=== PATIENT | female | born 1965 | race Caucasian/White ===

== ENCOUNTER → 2024-08-11 | Outpatient (CLI) | payer MEDICARE, MEDICAID, SELFPAY | END | disposition home or self-care (01) | PROVIDERS: PCP Physician Assistant Medical; Referring Provider Surgery Vascular Surgery; Visit Provider Surgery Vascular Surgery | DX: Z53.8 Procedure and treatment not carried out for other reasons (principal) ==

== ENCOUNTER → 2024-12-29 | Outpatient (CLI) | payer MEDICARE, MEDICAID, SELFPAY ==
--- NOTE | 2024-12-29 16:00 | XR_ITS ---
Examination: CT chest, without intravenous contrast. Sagittal and coronal 2-D reconstructions. Exam date and time: December 29, 2024 1639 hours Comparison 04/07/2018 INDICATIONS: Nicotine dependence, smoking history 40 years with coughing, diagnosis COPD CTDI:vol (mGy) 11.8 DLP: (mGycm) 449 Technique: Multiple 3.0 mm axial sections of the chest to been obtained. Bone and lung density settings are obtained. Sagittal and coronal 2-D reconstructions have been obtained. Low dose protocols were performed. One or more of the following dose reduction techniques were used; automated exposure control, adjustment of the mA and/or KV according to patient size, use of iterative reconstruction technique. Findings: Thoracic aortic calcification no aneurysmal dilatation Pulmonary artery segments are not enlarged Heavy calcification left anterior descending and left circumflex coronary arteries Mild enlargement cardiac contour Right internal jugular dialysis catheter is satisfactorily positioned as well as ventricular cardiac lead No paratracheal tracheobronchial or bronchopulmonary adenopathy 4 mm subpleural pulmonary nodule right upper lobe image 136 3 mm pulmonary nodule posterior right lung image 136 4 mm pleural-based pulmonary nodule right middle lobe image 212 No lobar pneumonia or pulmonary edema No visualized liver splenic lesion 2 mm right renal calculus IMPRESSION: Noncalcified pulmonary nodules as above, with this study as baseline recommend 6 month follow-up CT chest without contrast
== END | disposition home or self-care (01) ==
PROVIDERS: Referring Provider Physician Assistant Medical; Visit Provider Physician Assistant Medical
DX: R91.8 Other nonspecific abnormal finding of lung field (principal); F17.200 Nicotine dependence, unspecified, uncomplicated
CPT/HCPCS: 71271

== ENCOUNTER 2025-04-05 09:51 | Inpatient (IN) | payer MEDICARE, MEDICAID, SELFPAY ==
[2025-04-05] VITALS (13 sets, daily range): BP systolic 137–184; BP diastolic 85–99; PULSE 60–78; RESP 2–21; TEMP 36.1–36.8; O2SAT 88–99; BMI 27.6
--- NOTE | 2025-04-05 10:00 | XR_ITS ---
Examination: CT abdomen with intravenous contrast CT pelvis with intravenous contrast 2-D coronal reconstructions 2-D sagittal reconstructions Date and time of exam:April 05, 2025, 1122 hours, comparison May 02, 2018 INDICATIONS: Onset generalized abdominal pain today. CTDI: vol (mGy) 19.8 DLP: (mGycm) 1196 Technique: Multiple axial sections of the abdomen and pelvis have been obtained. 64 slice high-resolution scanner used. 3 mm axial sections have been obtained, post intravenous injection 75 cc [id number] 2-D sagittal, coronal reconstructions obtained. Low dose protocols were performed. One or more of the following dose reduction techniques were used; automated exposure control, adjustment of the mA and/or KV according to patient size, use of iterative reconstruction technique. Findings: 3 mm nodule anterior right lower lung zone Mild to moderate enlargement cardiac contour No focal liver lesion No gallstones No extrahepatic biliary tract dilatation Splenomegaly 13 cm No pancreatic mass Nodular thickening both adrenal glands Bilateral renal calculi 1 to 3 mm, no hydronephrosis or ureteral calculi Gastric mucosa appears thickened Abdominal aortic calcification no aneurysmal dilatation No bowel obstruction 22 mm fat-containing umbilical hernia Fat-containing right pelvic hernia defect 25 mm Normal appendix No bowel obstruction or diverticulitis Atrophic uterus Urinary bladder wall thickening up to 7 mm Prominent osteopenia Advanced degenerative disc disease L4-L5 Moderate bilateral hip osteoarthritis IMPRESSION: Bilateral nonobstructing renal calculi Gastritis pattern but clinical correlation advised, consider elective upper GI series follow-up 22 mm fat-containing a buckle hernia defect 25 mm fat-containing right pelvic anterior wall hernia defect Urinary bladder wall thickening up to 7 mm, consider cystitis
--- NOTE | 2025-04-05 10:03 | PD.EDABDPN ---
ED Abdominal Pain RME/HPI General Chief Complaint: Nausea/Vomiting/Diarrhea Stated complaint: N/V ABD PAIN Time seen by provider: 04/05/25 09:59 Arrival date/time: 04/05/25 09:51 Source: patient and EMS Mode of arrival: EMS Limitations: no limitations RME / HPI RME / HPI narrative: Patient is a 59-year-old female with medical history notable for ESRD goes Thursday with Dr. Nicole, hypertension, CHF on diuretics, neuropathy, takes gabapentin, anxiety takes Ativan that is seen Emergency Department concerns for headache, generally feeling well as well as lower abdominal pain. Per EMS and the patient, over the last couple days she has not felt well has had a headache. Denies fever however has been feeling warm at home. Has also been nauseous. This morning she woke up continued to have a headache, checked her blood pressure it was elevated so she took her blood pressure medication. She was not feeling any better, she measured her blood pressure again shortly thereafter it was still elevated so she took another dose of her blood pressure medication. She takes metoprolol for her blood pressure however she also takes furosemide for CHF. Patient also complaining of abdominal pain, started yesterday. Denies taking anything else. Patient still makes urine. Patient proceeded to go to her dialysis appointment today however when she arrived her systolic blood pressure was in the 80s. EMS was called. Per EMS when they arrived she was hypoxic to the 80s. Patient has oxygen at home however she is not oxygen dependent she only takes it as needed. She was also hypotensive to systolic blood pressure in the 80s. They were cautious and did not give her very much fluid given her history of CHF. Related Data Home Medications ?Medication ?Instructions ?Recorded ?Confirmed bumetanide 0.5 mg tablet 1 mg PO BID 01/20/22 04/06/25 acetaminophen 500 mg tablet 1,000 mg PO Q8HR PRN pain or 04/06/25 04/06/25 arthritis gabapentin 300 mg capsule 300 mg PO QDAY 04/06/25 04/06/25 guaifenesin 400 mg tablet 400 mg PO Q8HR PRN cough 04/06/25 04/06/25 lorazepam 2 mg tablet (Ativan) 2 mg PO BID 04/06/25 04/06/25 metoprolol tartrate 50 mg tablet 50 mg PO BID 04/06/25 04/06/25 sucroferric oxyhydroxide 500 mg 1,000 mg PO TID 04/06/25 04/06/25 chewable tablet (Velphoro) vitamin B complex-vitamin C-folic 1 tab PO QDAY 04/06/25 04/06/25 acid 0.8 mg tablet Previous Rx's ?Medication ?Instructions ?Recorded aspirin 81 mg tablet,delayed 81 mg PO QDAY #30 tabs 11/07/20 release (Adult Aspirin Regimen) insulin glargine 100 unit/mL (3 20 unit (0.2 mL) subcut QDAY 1 04/07/25 mL) subcutaneous pen (Lantus month #6 mL Solostar U-100 Insulin) insulin lispro 200 unit/mL (3 mL) 1 sliding scale dose subcut 04/07/25 subcutaneous pen USEASDIRECTD #6 mL Allergies Allergy/AdvReac Type Severity Reaction Status Date / Time titanium Allergy Verified 12/31/20 20:57 Review of Systems Review of Systems Systems Reviewed: All systems reviewed, normal except as documented Past Medical History Past Medical History NEUROLOGIC: Positive Cerebrovascular Accident CARDIAC: Positive Cardiac Disorders, Myocardial Infarction, Angina, Coronary Artery Disease, Congestive Heart Failure, Edema and Hypertension ENT: Positive Blind ENDOCRINE: Positive Endocrine Disorders, Diabetes Mellitus Type 1 and Diabetes Mellitus Type 2 HEMATOLOGIC: Positive Sickle Cell Disease PSYCHO/SOCIAL: Positive Depression OTHER HISTORY: Positive Blood Transfusions Family History FAMILY HISTORY: Negative Family Cardiac Disorders Surgical History SURGICAL: Positive Cardiac Surgery, Coronary Stent and Amputation Social History SMOKING STATUS: Unknown if ever smoked SUBSTANCE USE: methamphetamine ED Exam General Limitations: Present no limitations General appearance: Present alert and in no apparent distress Head Head exam: Present atraumatic and normocephalic Eye Eye exam: Present normal appearance, PERRL and EOMI ENT ENT exam: Present normal exam, normal oropharynx and mucous membranes dry Chest Chest inspection: Present normal inspection and symmetric chest wall rise Respiratory Respiratory exam: Present normal lung sounds bilaterally; Absent respiratory distress, wheezes or stridor Cardiovascular Cardiovascular exam: Present regular rate and normal rhythm Abdominal Exam Abdominal exam: Present soft and tenderness (Tenderness to evaluation of lower abdomen, no rebound or guarding); Absent distention Extremities Exam Extremities exam: Present other (Patient with above-knee amputation of left lower extremity, well-healed, no lesions appreciated in the right lower extremity nor bilateral upper extremities) Neurological Exam Neurological exam: Present alert, oriented X3 and other (Patient is GCS 15 however slow to respond) Psychiatric Psychiatric exam: Present normal affect and normal mood Skin Skin exam: Present warm, dry and intact Course Quality Measures Suspected type of Stroke: Non Acute Last known well (date): 04/05/25 Tenecteplase given: Reason(s) TPA not given: Stroke severity too mild (non-disabling) (suspected recrudescence, encephalopathy.) not given stroke Orders Category Date Time Status Bedside Blood Glucose NOW Care 04/05/25 11:08 Active Bedside COVID-19 Antigen Test NOW Care 04/05/25 10:[address] Screening NOW Care 04/05/25 10:00 Active Vice President Of Manufacturing NOW Care 04/05/25 11:08 Active Continuous Pulse Oximetry NOW Care 04/05/25 11:08 Completed EKG (ED ONLY) *Do not use* NOW Care 04/05/25 10:13 Completed EKG (ED ONLY) *Do not use* NOW Care 04/05/25 11:08 Completed In and Out Catheter NEEDED Care 04/05/25 11:08 Active Insert IV NOW Care 04/05/25 11:08 Completed NIH Stroke Scale now Care 04/05/25 11:08 Active NPO NOW Care 04/05/25 11:08 Active Neuro Check Q1HR Care 04/05/25 11:08 Active Nurse Swallow Screen x1 Care 04/05/25 11:08 Active Consult to Neurology / Tele-Neurology Routine Cons 04/05/25 11:[address] abdomen pelvis w con Stat Exams 04/05/25 10:[address] angio stroke protocol Stat Exams 04/05/25 11:[address] stroke protocol Stat Exams 04/05/25 11:08 Completed EKG (ED Only) Stat Exams 04/05/25 10:13 Draft EKG (ED Only) Stat Exams 04/05/25 11:08 Ordered XR chest 1V portable Stat Exams 04/05/25 11:08 Completed Alcohol, Blood Medical Stat Lab 04/05/25 10:58 Completed BNP [B-Type Natriuretic Peptide] Stat Lab 04/05/25 10:58 Completed CBC Stat Lab 04/05/25 10:26 Completed CMP [Comprehensive Metabolic Panel] Stat Lab 04/05/25 10:58 Completed Drug Screen,Urine Stat Lab 04/05/25 13:36 Ordered Influenza A & B Rapid Panel Stat Lab 04/05/25 10:26 Completed Magnesium Stat Lab 04/05/25 10:58 Completed Partial Thromboplastin Time Stat Lab 04/05/25 10:58 Completed Prothrombin Time with INR Stat Lab 04/05/25 10:58 Completed Troponin I Stat Lab 04/05/25 10:58 Completed UA, C/S IF [Urinalysis, C/S if Indicated] Stat Lab 04/05/25 10:58 Completed Urinalysis, C/S if Indicated Stat Lab 04/05/25 13:36 Ordered Urine Culture Stat Lab 04/05/25 10:58 Received VBG [Venous Blood Gas] Stat Lab 04/05/25 10:26 Completed Acetaminophen Tab [Tylenol Tab] Med 04/05/25 10:03 Discontinued 650 mg PO X1 ONE cefTRIAXone/D5w 1gm IV premix [Rocephin/D5w 1gm IV Med 04/05/25 12:03 Discontinued premix] 1 gm in 50 ml IV STAT Oxygen Delivery NOW RT 04/05/25 11:08 Completed Vital Signs Vital signs: Vital Signs Temperature 98.3 F 04/05/25 09:55 Pulse Rate 73 04/05/25 09:55 Respiratory Rate 18 04/05/25 09:55 Blood Pressure 173/93 H 04/05/25 09:55 Pulse Oximetry (%) 95 04/05/25 09:55 Oxygen Delivery Method Nasal Cannula 04/05/25 09:55 Oxygen Flow Rate 3 04/05/25 09:55 Pulse ox is 95% on 3L nasal cannula which is adequate. Abdominal Pain MDM MDM Narrative MDM Narrative:: Patient is a 59-year-old female is in Emergency Department concerns for headache abdominal pain hypoxia, and low blood pressure. Vital signs and exam as listed. Concern for ACS arrhythmia electrolyte abnormality fluid overload metabolic disturbance bowel obstruction, perforation, urinary tract infection among others. Ordered labs EKG chest x-ray CT head, CT abdomen pelvis with contrast. Patient is a dialysis patient. Did not go to dialysis today. 11:06h I was called into the room by RN. Report she was speaking with the patient when suddenly patient complained of I don't feel good followed by change in speech, left facial droop, and left sided weakness. Stroke alert called overhead. 11:35h: I spoke with hospice agency. 11:46h: Patient at this time reports I want to go home . I spoke with patients daughter Javier over the phone who reported the patient has had episodes of slurring her speech intermittently over the last several days. 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 Daughter denies patient taking any blood thinners or recent bleeding. 11:57h I spoke with teleneurologist Dr. Lilly. Reports patient had a left sided stroke with weakness and slurred speech in 2019. Likely recrudecense vs encephalopathy. Does not recommend TNK. Recommends admission for further work-up. 12:00h I spoke with hospitalist team C regarding admission. 12:20h I spoke with patients daughter Javier and discussed plan for admission. Patient data External records reviewed:: [facility] previous records and EMS form Clinical information provided by:: patient and EMS Social determinants that could affect healthcare access:: none Patient has the following chronic illnesses:: See MDM How is presenting disease/condition affected by chronic disease/condition?: exacerbated by Evaluation data The following diagnostics were reviewed and interpreted by me:: lab results, radiology exam(s) and EKG tracing(s) Lab and/or radiology exams considered but not ordered:: None Interpretation Summary: See MDM Medications / Prescriptions Medications or Prescriptions considered but not ordered:: None Medication administrations:: Medication Administration History Discontinued Medications Acetaminophen (Acetaminophen 325 Mg Tablet) 650 mg PO X1 ONE Stop: 04/05/25 10:04 Last Admin: 04/05/25 10:16 Dose: 650 mg Documented By: EF Acetaminophen (Acetaminophen 325 Mg Tablet) 650 mg PO Q6H PRN; Protocol PRN Reason: Fever >101.5 Stop: 05/05/25 12:53 Last Admin: 04/07/25 14:39 Dose: 650 mg Documented By: Admin: 04/07/25 06:29 Dose: 650 mg Documented By: [email or web address] Admin: 04/06/25 05:41 Dose: 650 mg Documented By: [email or web address] Albuterol (Albuterol Rt 2.5 Mg/0.5 Ml Nebu) 2.5 mg INH Q4H PRN PRN Reason: SHORTNESS OF BREATH OR WHEEZE Stop: 05/05/25 12:53 Albuterol/Ipratropium (Albuterol/Ipratropium (Duoneb) Rt Carmel 3 Ml Nebu) 3 ml INH Q6HRRT PRN PRN Reason: shortness of breath Stop: 05/05/25 18:59 Aspirin (Aspirin Ec 81 Mg Tabec) 81 mg PO QDAY YANA Stop: 05/05/25 13:14 Last Admin: 04/07/25 12:42 Dose: 81 mg Documented By: Admin: 04/06/25 10:07 Dose: 81 mg Documented By: Admin: 04/05/25 13:54 Dose: 81 mg Documented By: VG Atorvastatin Calcium (Atorvastatin Calcium 10 Mg Tablet) 40 mg PO HS YANA Stop: 05/05/25 20:59 Last Admin: 04/06/25 20:35 Dose: 40 mg Documented By: Admin: 04/05/25 20:55 Dose: 40 mg Documented By: RENE Bumetanide (Bumetanide Inj 0.25 Mg/Ml Vial 4 Ml) 1 mg IVP BID YANA Stop: 05/05/25 13:14 Last Admin: 04/07/25 12:43 Dose: 1 mg Documented By: Admin: 04/06/25 20:36 Dose: 1 mg Documented By: Admin: 04/06/25 10:07 Dose: 1 mg Documented By: Admin: 04/05/25 20:57 Dose: 1 mg Documented By: Admin: 04/05/25 13:54 Dose: 1 mg Documented By: DILMA Dextrose (Dextrose 50%-Water Inj 50 Ml Syringe) 25 ml IV Q15MIN PRN PRN Reason: BG 50-70 responsive npo pt Stop: 05/05/25 13:00 Last Admin: 04/06/25 05:22 Dose: 25 ml Documented By: Admin: 04/05/25 16:29 Dose: 25 ml Documented By: BR Dextrose (Dextrose 50%-Water Inj 50 Ml Syringe) 50 ml IV Q15MIN PRN PRN Reason: BG <50 OR BG <70 & pt unresponsive Stop: 05/05/25 13:00 Glucagon (Glucagon Inj 1 Mg Vial) 1 mg IM Q15MIN PRN PRN Reason: BG <70, and no IV access Last Admin: 04/06/25 05:39 Dose: 1 mg Documented By: RENE Heparin Sodium (Porcine) (Heparin Sod Inj 5000 Unit/Ml Vial) 5,000 unit SC Q12HR YANA Stop: 04/19/25 12:59 Last Admin: 04/07/25 12:42 Dose: 5,000 unit Documented By: RAMÓN Co-signed By: BELLO Admin: 04/06/25 20:37 Dose: 5,000 unit Documented By: RENE Co-signed By: Admin: 04/06/25 10:07 Dose: 5,000 unit Documented By: NIMA Co-signed By: BETZY Comments: rapid response patient Admin: 04/05/25 20:58 Dose: 5,000 unit Documented By: RENE Co-signed By: Admin: 04/05/25 13:59 Dose: 5,000 unit Documented By: DILMA Co-signed By: SHANNON Heparin Sodium (Porcine) (Heparin Sod Inj 1000 Unit/Ml Vial 10 Ml) 3,300 unit INDWELLCAT X1 PRN PRN Reason: DIALYSIS Last Admin: 04/07/25 11:33 Dose: 3,300 unit Documented By: SANGITA Co-signed By: JOSH Ceftriaxone Sodium/Dextrose (Rocephin/D5w 1gm Iv Premix) 1 gm in 50 mls @ 100 mls/hr IV STAT STA Stop: 04/05/25 12:32 Last Infusion: 04/05/25 15:32 Dose: Infused Documented By: Admin: 04/05/25 12:25 Dose: 100 mls/hr Documented By: DAYANA Ceftriaxone Sodium/Dextrose (Rocephin/D5w 1gm Iv Premix) 1 gm in 50 mls @ 100 mls/hr IV QDAY YANA Stop: 04/13/25 08:59 Last Admin: 04/07/25 12:43 Dose: 100 mls/hr Documented By: Infusion: 04/06/25 10:36 Dose: Infused Documented By: Admin: 04/06/25 10:06 Dose: 100 mls/hr Documented By: NIMA Azithromycin 500 mg/ Sodium (Chloride) 250 mls @ 250 mls/hr IV QDAY YANA Stop: 04/12/25 08:59 Last Admin: 04/07/25 12:42 Dose: 250 mls/hr Documented By: Infusion: 04/06/25 11:06 Dose: Infused Documented By: Admin: 04/06/25 10:06 Dose: 250 mls/hr Documented By: NIMA Comments: rapid response pt Azithromycin 500 mg/ Sodium (Chloride) 250 mls @ 250 mls/hr IV X1 ONE Stop: 04/05/25 14:14 Last Infusion: 04/05/25 15:31 Dose: Infused Documented By: Admin: 04/05/25 14:00 Dose: 250 mls/hr Documented By: DILMA Insulin Degludec (Insulin Degludec 5 Unit/0.05 Ml (Per 5 Units)) 20 unit SC HS YANA Stop: 05/05/25 20:59 Last Admin: 04/05/25 20:58 Dose: 20 unit Documented By: RENE Co-signed By: Insulin Degludec (Insulin Degludec 5 Unit/0.05 Ml (Per 5 Units)) 5 unit SC HS YANA Stop: 05/06/25 20:59 Insulin Degludec (Insulin Degludec 5 Unit/0.05 Ml (Per 5 Units)) 10 unit SC HS YANA Stop: 05/06/25 20:59 Insulin Degludec (Insulin Degludec 5 Unit/0.05 Ml (Per 5 Units)) 6 unit SC HS YANA Stop: 05/06/25 20:59 Last Admin: 04/06/25 20:38 Dose: Not Given Documented By: RENE Non-Admin Reason: Other, see note Comments: 2 BOWL TOPPER today due to blood sugar issues Insulin Degludec (Insulin Degludec 5 Unit/0.05 Ml (Per 5 Units)) 6 unit SC DAILY YANA Stop: 05/07/25 07:59 Last Admin: 04/07/25 13:12 Dose: Not Given Documented By: RAMÓN Non-Admin Reason: Cancelled by Provider Admin: 04/07/25 08:10 Dose: 6 unit Documented By: NIMA Co-signed By: SANGITA Insulin Human Lispro (Insulin Lispro (Admelog) 1 Unit/0.01 Ml Unit) 0 unit SC AC YANA; Protocol Stop: 05/05/25 16:59 Last Admin: 04/06/25 07:56 Dose: 3 unit Documented By: NIMA Co-signed By: TIFFANY Admin: 04/05/25 16:46 Dose: Not Given Documented By: JONATHAN Non-Admin Reason: Per Protocol Insulin Human Lispro (Insulin Lispro (Admelog) 1 Unit/0.01 Ml Unit) 0 unit SC Q4HR YANA; Protocol Stop: 05/06/25 10:29 Last Admin: 04/06/25 16:10 Dose: Not Given Documented By: NIMA Non-Admin Reason: Per Protocol Comments: q4 checks bs 42 Admin: 04/06/25 12:26 Dose: 2 unit Documented By: NIMA Co-signed By: DL Insulin Human Lispro (Insulin Lispro (Admelog) 1 Unit/0.01 Ml Unit) 0 unit SC AC YANA; Protocol Stop: 05/06/25 16:59 Insulin Human Lispro (Insulin Lispro (Admelog) 1 Unit/0.01 Ml Unit) 3 unit SC AC YANA Stop: 05/06/25 16:59 Insulin Human Lispro (Insulin Lispro (Admelog) 1 Unit/0.01 Ml Unit) 0 unit SC Q3HR YANA; Protocol Stop: 05/06/25 17:59 Insulin Human Lispro (Insulin Lispro (Admelog) 1 Unit/0.01 Ml Unit) 3 unit SC TIDWM YANA Stop: 05/06/25 17:29 Last Admin: 04/07/25 17:38 Dose: Not Given Documented By: NIMA Non-Admin Reason: Hold per Dr. Quach Comments: Pt has been vomiting Admin: 04/07/25 13:10 Dose: 3 unit Documented By: RAMÓN Co-signed By: NIMA Admin: 04/07/25 08:01 Dose: Not Given Documented By: NIMA Non-Admin Reason: Held per Dr. Buckner Admin: 04/06/25 17:55 Dose: Not Given Documented By: NIMA Non-Admin Reason: Blood sugar 79 Insulin Human Lispro (Insulin Lispro (Admelog) 1 Unit/0.01 Ml Unit) 0 unit SC AC [facility]; Protocol Stop: 05/06/25 16:59 Last Admin: 04/07/25 17:37 Dose: 1 unit Documented By: NIMA Co-signed By: BETZY Admin: 04/07/25 12:48 Dose: 1 unit Documented By: RAMÓN Co-signed By: BELLO Admin: 04/07/25 08:01 Dose: Not Given Documented By: NIMA Non-Admin Reason: Held per Dr. Buckner Admin: 04/06/25 17:06 Dose: Not Given Documented By: NIMA Non-Admin Reason: Per Protocol Insulin Human Regular (Insulin Hum Regular 1 Unit/0.01 Ml (Per Unit)) 10 unit IV X1 ONE; Protocol Stop: 04/06/25 09:52 Last Admin: 04/06/25 10:01 Dose: 10 unit Documented By: BETZY Co-signed By: NIMA Labetalol HCl (Labetalol Inj 5 Mg/Ml Vial 20 Ml) 10 mg IVP Q15MIN PRN PRN Reason: Hypertension Stop: 05/05/25 18:00 Last Admin: 04/07/25 18:09 Dose: 10 mg Documented By: Admin: 04/07/25 07:30 Dose: 10 mg Documented By: Admin: 04/06/25 23:56 Dose: 10 mg Documented By: Admin: 04/06/25 10:08 Dose: 10 mg Documented By: Admin: 04/06/25 05:40 Dose: 10 mg Documented By: RENE Metoprolol Tartrate (Metoprolol Tartrate 25 Mg Tablet) 25 mg PO BID YANA Stop: 05/06/25 20:59 Last Admin: 04/07/25 12:41 Dose: 25 mg Documented By: Admin: 04/06/25 20:39 Dose: 25 mg Documented By: RENE Nicotine (Nicotine Patch 14 Mg/24 Hr Patch.Td24) 14 mg TOP QDAY YANA Stop: 05/06/25 08:59 Last Admin: 04/07/25 12:44 Dose: 14 mg Documented By: Admin: 04/06/25 10:08 Dose: 14 mg Documented By: NIMA Ondansetron HCl (Ondansetron Inj 2 Mg/Ml Inj 2 Ml) 4 mg IVP Q6H PRN; Protocol PRN Reason: NAUSEA OR VOMITING Stop: 05/05/25 12:53 Last Admin: 04/07/25 16:57 Dose: 4 mg Documented By: NIMA Pantoprazole Sodium (Pantoprazole 40 Mg Tablet) 40 mg PO QDAY YANA Stop: 05/06/25 08:59 Last Admin: 04/07/25 12:42 Dose: 40 mg Documented By: Admin: 04/06/25 10:07 Dose: 40 mg Documented By: NIMA Polyethylene Glycol (Polyethylene Glycol 17 Gm Packet) 17 gm PO QDAY YANA Stop: 05/06/25 08:59 Last Admin: 04/07/25 12:45 Dose: Not Given Documented By: AC Non-Admin Reason: Patient Refused Admin: 04/06/25 10:17 Dose: Not Given Documented By: KD Non-Admin Reason: Patient Refused Sennosides (Senna/Docusate Sod 1 Tab Tablet) 1 tab PO QDAY PRN; Protocol PRN Reason: CONSTIPATION Stop: 05/06/25 05:08 Sodium Chloride (Sodium Chloride Rt [place] 0.9% 3 Ml Nebu) 3 ml INH PRN PRN PRN Reason: SOLN Stop: 05/05/25 12:53 Tuberculin PPD (Tuberculin Ppd Inj 5 Unit/0.1 Ml Dose) 5 unit ID X1 ONE Stop: 04/05/25 21:55 Last Admin: 04/06/25 19:16 Dose: Not Given Documented By: KD Non-Admin Reason: Dr. Madison said cancel See above Consultations Consultation(s) initiated? (list below): Yes Consultation #1 (Physician, Specialty, Details): I spoke with teleneurologist Dr. Lilly. Time: 11:57 Diagnosis Differential diagnosis abdominal pain: other (See MDM ) Most likely diagnosis given after review of the tests above:: Metabolic encephalopathy Altered mental status Admission Indicated Admission indicated?: indicated Admission Request Was there a request for admission?: Yes Admission Attestation Admission request attestation: Discussed case with Hospitalist service regarding admission. Discussed patients ED course, exam findings, labs, and radiology results. The Hospitalist [agrees] to accept the patient for admission. Disposition Plan Disposition Plan: Admit Critical Care Time Critical Care Time Critical Care Time: Yes Total Critical Care Time (min.): 60 Attestation: The high probability of sudden, clinically significant deterioration in the patient's condition required the highest level of my preparedness to intervene urgently. The services I provided to this patient were to treat and/or prevent clinically significant deterioration. Services included the following: chart data review, reviewing nursing notes and/or old charts, documentation time, leadership development consultant collaboration regarding findings and treatment options, medication orders and management, direct patient care, vital sign assessments and ordering, interpreting and reviewing diagnostic studies and lab tests. Aggregate critical care time includes only time during which I was engaged in work directly related to the patient's care, as described above, whether at bedside or elsewhere in the Emergency Department. It did not include time spent performing other reported procedures or the services of residents, students, nurses or physician assistants. Discharge Plan Plan Patient Disposition: Admit Acute Care w/in Hospital Patient condition on transfer: Stable Problem List Clinical Impression: Metabolic encephalopathy, Altered mental status Patient/Caregiver Discharge Instructions Discharge Activity: as per physical therapy Other Activity Instructions:: Please follow-up with your PCP, neurology in 1 to 2 weeks of discharge. Continue to monitor your blood glucose closely, discussed with your primary regarding blood glucose control Your insulin glargine dose has been changed to 20 units daily Consider getting referral to endocrinology from your PCP Discussed regarding your blood pressure control with your PCP.
--- NOTE | 2025-04-05 10:13 | EKG_ITS ---
[facility] Test Date: 2025-04-05 Pat Name: TRACY CARPENTER Department: Room: - Gender: Female Manager Of Tax: : 1965 Requested By: Kavya Wood Order Number: [id number] Reading MD: Kavya Wood Measurements Intervals [place] Rate: 70 P: -64 [place]: 122 QRS: 1 QRSD: 85 T: 171 QT: 389 QTc: 421 Interpretive Statements JUNCTIONAL RHYTHM LOW QRS VOLTAGE IN PRECORDIAL LEADS [QRS DEFLECTION < 1.0 mV IN CHEST LEADS] ANTEROSEPTAL MYOCARDIAL INFARCTION , OF INDETERMINATE AGE [40+ ms Q WAVE IN V1-V4] Compared to ECG 04/12/2024 22:01:22 Junctional rhythm now present Sinus rhythm no longer present Myocardial infarct finding still present /store/S0/[id number].pdf
[2025-04-05] MEDS: ACETAMINOPHEN 325 MG TABLET 650 MG PO (10:16)
[2025-04-05 10:36] LABS: Base Excess, Venous -3 (-3-3); O2 Saturation, Venous 96 % (96-97); PCO2, Venous 46 mmHg (36-56); PO2, Venous 80 mmHg (15-58); pH, Venous 7.32 (7.33-7.66)
[2025-04-05 10:46] LABS: Basophils # (Auto) 0.1 Thou/mm3 (0.0-0.2); Basophils % (Auto) 1 % (0-2.5); Eosinophils # (Auto) 0.2 Thou/mm3 (0.0-0.5); Eosinophils % (Auto) 3 % (0-10); Hematocrit 40.6 % (36.0-46.0); Hemoglobin 13.9 g/dL (12.0-16.0); Immature Granulocytes Auto 0.03 Thou/mm3 (0.00-0.00); Lymphocytes # (Auto) 1.4 Thou/mm3 (1.0-4.8); Lymphocytes % (Auto) 17 % (10-50); Mean Corpuscular HGB Conc 34.2 g/dl (31.0-37.0); Mean Corpuscular Hemoglobin 32.2 pg (25.0-35.0); Mean Corpuscular Volume 94 fL (80-100); Monocytes # (Auto) 0.6 Thou/mm3 (0.0-0.8); Monocytes % (Auto) 8 % (0-12); Neutrophils # (Auto) 5.9 Thou/mm3 (1.8-7.7); Neutrophils % (Auto) 72 % (37-80); Nucleated Red Blood Cell # 0.00 Thou/mm3 (0.00-0.00); Nucleated Red Blood Cell % 0 /100 WBC (0); Platelet Count 114 Thou/mm3 (140-440); RDW Standard Deviation 44.3 fL (36.4-46.3); Red Blood Count 4.32 Miln/mm3 (4.00-5.20); White Blood Count 8.2 Thou/mm3 (3.6-11.0)
[2025-04-05 11:04] LABS: Collection Type, Urine Catheter
--- NOTE | 2025-04-05 11:08 | XR_ITS ---
Examination: CTA carotids with intravenous contrast CTA brain, head with intravenous contrast. 2-D sagittal, coronal reconstructions. 3-D reconstructions. Exam date and time: April 05, 2025, 1128 hours INDICATIONS: Stroke alert this morning, onset focal neurologic deficit including left-sided body weakness altered mental status slurred speech CTDI: vol (mGy) 11.8 DLP: (mGycm) 157 Technique: Multiple CTA axial brain, head carotid images post intravenous contrast injection 60 cc, [id number]. 2-D sagittal, coronal reconstructions. 3-D reconstructions, 3-D post processing including vascular maximum intensity projection images. Low dose protocols were performed. One or more of the following dose reduction techniques were used; automated exposure control, adjustment of the mA and/or KV according to patient size, use of iterative reconstruction technique. Findings: Left thyromegaly with 19 mm left thyroid nodule Moderate carotid bifurcation calcification on the right, no significant stenoses common carotid artery carotid bifurcation or right internal carotid artery Moderate calcification left carotid bifurcation 20-40% stenosis left carotid bifurcation and origin left internal carotid artery Codominant vertebral arteries with no critical stenoses in the neck Intracranial vertebral arteries basilar artery posterior cerebral branches fill with no large vessel occlusions Significant calcification bilateral juxtasellar internal carotid arteries, bilateral 30-50% stenoses juxtasellar internal carotid arteries No large vessel occlusions involving M1 segments middle cerebral arteries middle cerebral artery trifurcation vessels or anterior cerebral arteries IMPRESSION: No critical neck arterial stenoses No cerebral large vessel arterial occlusions or thrombus
--- NOTE | 2025-04-05 11:08 | XR_ITS ---
Examination: CT brain head without contrast. 2-D sagittal coronal reconstructions Date and time of exam:April 05, 2025, 1116 hours INDICATIONS: Stroke alert, onset altered mental status left-sided body weakness beginning this morning. COMPARISON: January 19, 2022 CTDI: vol (mGy):50.8 DLP: (mGycm):1005 Technique: Multiple CT axial sections of the brain have been obtained, 5 mm slice thickness. Contrast has not been administered. 2-D sagittal, coronal reconstructions have been obtained Low dose protocols were performed. One or more of the following dose reduction techniques were used; automated exposure control, adjustment of the mA and/or KV according to patient size, use of iterative reconstruction technique. Findings: No significant ventricular enlargement. Unchanged areas of encephalomalacia in both occipital lobes Intra-axial or extra-axial hemorrhage density is not seen. No mass effect or midline shift Basal cisterns are not remarkable. Fourth ventricle is midline. Cranial vault intact. Impression: No interval acute hemorrhage, mass effect or midline shift
--- NOTE | 2025-04-05 11:08 | XR_ITS ---
Examination: AP chest single view Technique one AP portable upright chest single view Date and time: April 05, 2025 1215 hours, comparison January 19, 2022 INDICATIONS: Stroke alert today FINDINGS: Bibasilar opacity consider aspiration pneumonia Cardiac lead satisfactory position Mild prominence left ventricle Right internal jugular dialysis catheter tip SVC IMPRESSION: Mild bibasilar pneumonia, consider aspiration pneumonia
[2025-04-05 11:10] LABS: Bilirubin,Urine Negative (Negative); Blood,Urine 1+ (Negative); Clarity,Urine Clear (Clear/Hazy); Color,Urine Lt-Yellow (Lt Yel-Yel); Culture Indicated,Urine Yes; Glucose, Urine 2+ (Negative); Ketones,Urine Negative (Negative); Leukocyte Esterase,Urine Positive (Negative); Nitrite,Urine Negative (Negative); PH,Urine 6.0 (5.0-7.0); Protein,Urine 2+ (Neg - Trace); RBC,Urine 3 /hpf (0-3); Specific Gravity,Urine 1.010 (1.001-1.035); Squamous Epithelial Cell,Urine 2 /hpf (0-5); Urobilinogen,Urine Negative mg/dL (0.0-1.0); WBC,Urine 39 /hpf (0-5)
[2025-04-05 11:20] LABS: Influenza A Ag Negative; Influenza B Ag Negative
[2025-04-05 11:38] LABS: INR 1.0 (0.9-1.3); Partial Thromboplastin Time 27.0 Seconds (22.0-36.0); Prothrombin Time 10.9 Seconds (9.0-12.2)
[2025-04-05 11:44] LABS: Alanine Aminotransferase 16 U/L (10-49); Albumin, Serum 3.9 gm/dL (3.4-4.8); Albumin/Globulin Ratio 2.0 (1.2-2.2); Alcohol, Blood Medical < 3.0 mg/dL (0-10.0); Alkaline Phosphatase 76 U/L (46-116); Anion Gap 8 (7-16); Aspartate Amino Transferase 24 U/L (0-34); B-Type Natriuretic Peptide 1480 pg/mL (0-100); BUN/Creatinine Ratio 12 Ratio (12-20); Bilirubin,Total 0.3 mg/dL (0.3-1.2); Blood Urea Nitrogen 60 mg/dL (9-23); Calcium 9.7 mg/dL (8.3-10.6); Calcium (Corrected) 9.8 mg/dL (8.5-10.1); Carbon Dioxide 26.2 mMol/L (20.0-31.0); Chloride 104 mMol/L (98-107); Creatinine (Component) 5.0 mg/dL (0.6-1.3); Estimated Creatinine Clearance 11.6 mL/min (>60); Globulin 2.0 gm/dL (2.3-3.5); Glucose 158 mg/dL (74-106); Magnesium 2.2 mg/dL (1.6-2.6); Osmolality,Calculated 295 (275-295); Potassium 4.7 mMol/L (3.4-5.1); Sodium 138 mMol/L (136-145); Total Protein 5.9 gm/dL (5.7-8.2); eGFR 9 See Note
[2025-04-05 11:47] LABS: Troponin I 0.128 ng/mL (0.0-0.045)
--- NOTE | 2025-04-05 12:23 | ESCONSULT_ITS ---
Tele Neuro Consultation Consultation Date 04/05/25 Most Recent Vital Signs Last Vital Signs Temp 98.1 F 04/05/25 11:40 Pulse 72 04/05/25 11:46 Resp 16 04/05/25 11:40 BP 177/99 H 04/05/25 11:40 Pulse Ox 95 04/05/25 11:40 O2 Del Method Nasal Cannula 04/05/25 11:40 O2 Flow Rate 5 04/05/25 11:40 Laboratory-Coagulation Panel PT 10.9 Seconds (9.0-12.2) 04/05/25 10:58 INR 1.0 (0.9-1.3) 04/05/25 10:58 APTT 27.0 Seconds (22.0-36.0) 04/05/25 10:58 Consultation Narrative [facility] Patient Name:???TRACY CARPENTER Date of :???1965 Identification Number:??? Date of Service:???04/05/2025 11:09:56 Diagnosis:?I67.4 - Hypertensive encephalopathy ?G93.49 - Encephalopathy Multifactorial Impression: ?Recurrent episodes of altered mental status with re-emergence of prior stroke symptoms of left facial droop, dysarthria, and left hemiparesis (prior right parietal stroke in 2019), corresponding to a one-week history of headache, abdominal pain, and nausea, along with substantial blood pressure fluctuations. Clinical presentation is most consistent with recrudescence in the setting of illness and/or blood pressure fluctuations/hypertensive encephalopathy. IV thrombolysis was not recommended due to concern for non-stroke etiology such as PRES given the rapid BP fluctuations, particularly as PRES carries a high risk of hemorrhage in the setting of IV thrombolysis. ? ?Recommendations: ?- EEG ?- MRI brain ?- Goal BP <160/90 ?- Metabolic/infectious workup Our recommendations are outlined below. Recommendations: ? Stroke/Telemetry Floor ? Neuro Checks (Q4) ? Bedside Swallow Eval ? DVT Prophylaxis ? IV Fluids, Normal Saline ? Head of Bed 30 Degrees ? Euglycemia and Avoid Hyperthermia (PRN Acetaminophen) ? Initiate or continue Aspirin 81 MG daily Sign Out: ? Discussed with Emergency Department Provider Advanced Imaging: CTA Head and Neck Completed. LVO:No Patient is not a candidate for RICHARD Metrics: Last Known Well: 04/05/2025 11:00:00 Dispatch Time: 04/05/2025 11:09:56 Initial Response Time: 04/05/2025 11:12:32Symptoms: Not speaking, staring, left facial droop. Initial patient interaction: 04/05/2025 11:18:45 NIHSS Assessment Completed: 04/05/2025 11:26:32Patient is not a candidate for T hrombolytic. Thrombolytic Medical Decision: 04/05/2025 11:40:05Patient was not deemed candidate for Thrombolytic because of following reasons: other diagnosis suspected recrudescence, encephalopathy. CT Head: I personally reviewed all the CT images that were available to me and it showed: no acute pathology. Chronic bilateral occipital infarcts Primary Provider Notified of Diagnostic Impression and Management Plan on: 04/05/2025 11:55:04 History of Present Illness:Patient is a 59 year old Female. Patient is a 59-year-old woman who originally presented to the ED the morning for a 1-week history of headache, nausea, and abdominal pain. She reported that she checked her blood pressure this morning and it was elevated, so she took her BP meds. When it remained elevated an hour later, she took a second dose. She went to HD but was hypotensive and was hypoxic and was sent to the ED. BP here was initially 82/54 but responded to IVF. While in the ED she was assisted to the bathroom by the EXPORT AGENT at around 11am and went they tried to get her back to bed she started complaining of not feeling well, started to stare, stopped speaking, and developed left facial droop and left hemiparesis, prompting stroke alert. On review of prior records, it appears that she has prior history of right parietal stroke in 2019 which resulted in left facial droop/weakness which has since improved. Discussed with Dr. Bose, who reports that patient's daughter stated that the patient has been having recurrent episodes like this over the course of the past week, over the same timeframe as her headache, nausea, and abdominal pain. At the time of my evaluation, she continued to have headache and feel poorly but was communicating clearly. Past Medical History: ?Hypertension ?Diabetes Mellitus ?Hyperlipidemia ?Stroke ?Seizures ?There is no history of Atrial Fibrillation Other PMH:? ESRD - missed dialysis, cardiomyopathy with intracardiac thrombus, COPD, DVT, history of tobacco and methamphetamine use Medications: Anticoagulant use:??Unknown Antiplatelet use:?Yes?aspirin 81mg Reviewed EMR for current medications Other Medications Pertinent To Assessment Include: lorazepam, Bumex, insulin, Jardiance, metoprolol, gabapentin, guanfacine Allergies:? Reviewed Description:?titanium Social History: Smoking: Former Drug Use: Former Family History: There is no family history of premature cerebrovascular disease pertinent to this consultation ROS : 14 Points Review of Systems was performed and was negative except mentioned in HPI. Past Surgical History: There Is No Surgical History Contributory To Today?s Visit There Is Surgical History of:? left AKA Examination: BP(177/99),?Pulse(75),?Blood Glucose(140) 1A: Level of Consciousness - Alert; keenly responsive?+ 0 1B: Ask Month and Age - Both Questions Right?+ 0 1C: Blink Eyes & Squeeze Hands - Performs Both Tasks?+ 0 2: Test Horizontal Extraocular Movements - Normal?+ 0 3: Test Visual Olvera - No Visual Loss?+ 0 4: Test Facial Palsy (Use Grimace if Obtunded) - Minor paralysis (flat nasolabial fold, smile asymmetry)?+ 1 5A: Test Left Arm Motor Drift - Drift, but doesn't hit bed?+ 1 5B: Test Right Arm Motor Drift - Drift, but doesn't hit bed?+ 1 6A: Test Left Leg Motor Drift - Amputation/Joint Fusion?+ 0 6B: Test Right Leg Motor Drift - Drift, but doesn't hit bed?+ 1 7: Test Limb Ataxia (FNF/Heel-Mcgraw) - No Ataxia?+ 0 8: Test Sensation - Mild-Moderate Loss: Can Sense Being Touched?+ 1 9: Test Language/Aphasia - Normal; No aphasia?+ 0 10: Test Dysarthria - Mild-Moderate Dysarthria: Slurring but can be understood?+ 1 11: Test Extinction/Inattention - No abnormality?+ 0 NIHSS Score:?6 NIHSS Free Text :?left facial decreased sensation to touch and nasolabial fold flattening. Tongue midline, able to move side to side. ?Impaired attention, requires prompting to follow instructions/answer questions Pre-Morbid Modified Ab Scale: 4 Points = Moderately severe disability; unable to walk and attend to bodily needs without assistance Spoke with :?Dr. Bose This consult was conducted in real time using interactive audio and video technology. Patient was informed of the technology being used for this visit and agreed to proceed. Patient located in hospital and provider located at home/office setting. Patient is being evaluated for possible acute neurologic impairment and high probability of imminent or life-threatening deterioration. I spent total of 55 minutes providing care to this patient, including time for face to face visit via telemedicine, review of medical records, imaging studies and discussion of findings with providers, the patient and/or family. Dr Jessi Lilly [facility] For Inpatient follow-up with [facility] physician please call [facility] at . As we are not an outpatient service for any post hospital discharge needs please contact the hospital for assistance. If you have any questions for the [facility] physicians or need to reconsult for clinical or diagnostic changes please contact us via [facility] at . Signature :?Jessi Lilly
[2025-04-05] MEDS: cefTRIAXone/D5w 1gm IV premix 1 GM/50 ML BAG IV (12:25)
--- NOTE | 2025-04-05 12:37 | PC.SS ---
SS follow up note; Parul from [facility] contacted SS and informed SS that patient is an established patient and has been in hospice services since September. SS contacted patient's daughter Javier Rizzo to complete initial assessment. Patient Cyn Amaya is a 59 Year old female who presented to the ED for N/V ABD Pain. Patients daughter reported that patient lives at home with her. Patient's daughter informed SS that she no longer would like patient to discharge back on hospice services, she stated that she would like the services to be revoked. Patient need minimal assistance completing ADL's Patient's daughter is surrogate decision maker, [phone]. Patient is also a dialysis patient and goes to dialysis on Thu, Wed, Thu at [facility]. Patient also attends the [facility] on Thursday's and . Choice of pharmacy is [facility]. PCP is Adrienne Bronson at [facility]. Discharge plan has been discussed and patients daughter would like for patient to discharge back home, she is refusing SNF if recommended. Patient's daughter is patient's [facility] provider and gets 209 hours a month. Patient's daughter is requesting A Hospital bed and 02 if needed. Patient's daughter will provide transportation at time of discharge. Discharge plan: Home with HH VS SNF Next of kin: Javier Rizzo [phone] PCP Adrienne Bronson
--- NOTE | 2025-04-05 12:58 | ECHO_ITS ---
Transthoracic Echo Report Ht (in): 64 Wt (lb): 161 Exam Location: Echo Lab Status: Emergency Geography Department Chair: Veronica Andujar Indications: Procedure Performed: BP: 158 / 95 HR: MEASUREMENTS (Male / Female) Normal Values 2D ECHO LV Diastolic Diameter PLAX 4.4 cm 4.2 - 5.9 / 3.9 - 5.3 cm LV Systolic Diameter PLAX 3.9 cm IVS Diastolic Thickness 1.2 cm 0.6 - 1.0 / 0.6 - 0.9 cm LVPW Diastolic Thickness 1.3 cm 0.6 - 1.0 / 0.6 - 0.9 cm LV Relative Wall Thickness 0.6 LVOT Diameter 1.9 cm Aortic Root Diameter 2.7 cm LV Ejection Fraction MOD BP 27.4 % >= 55 % LV Ejection Fraction MOD 4C 36.5 % LV Ejection Fraction 4C AL 37.4 % LV Ejection Fraction MOD 2C 21.4 % LV Ejection Fraction 2C AL 21.0 % LA Volume Index 36.5 cm?/m? 16 - 28 cm?/m? DOPPLER AV Peak Velocity 143.0 cm/s AV Peak Gradient 8.2 mmHg AV Mean Gradient 4.0 mmHg AV Velocity Time Integral 27.0 cm LVOT Peak Velocity 79.1 cm/s LVOT Peak Gradient 2.5 mmHg LVOT Velocity Time Integral 15.1 cm AV Area Cont Eq vti 1.6 cm? AV Area Cont Eq pk 1.6 cm? MV Area PHT 4.8 cm? Mitral E Point Velocity 99.4 cm/s Mitral A Point Velocity 114.0 cm/s Mitral E to A Ratio 0.9 LV E' Lateral Velocity 4.6 cm/s Mitral E to LV E' Lateral Ratio 21.8 LV E' Septal Velocity 2.8 cm/s Mitral E to LV E' Septal Ratio 35.1 TR Peak Velocity 323.5 cm/s TR Peak Gradient 41.9 mmHg FINDINGS Left Ventricle Normal left ventricular size. Mild LVH. Normal left ventricular diastolic filling pattern for age. The ejection fraction is visually estimated at 45-50 %. There is grade II diastolic dysfunction of the left ventricle (pseudonormal filling pattern). Right Ventricle The right ventricular size is moderately increased with normal systolic function. The estimated right ventricular systolic pressure, 52 mmHg. RAP 8. Left Atrium Mildly increased left atrial volume 36.5 mL/m?. Right Atrium The right atrium is normal by two-dimensional imaging, color flow and Doppler imaging with no structural abnormalities, no thrombus formation present. Atrial Septum The interatrial septum appears normal with no evidence of a shunt. Aorta The aorta is normal by two-dimensional, color flow and Doppler interrogation. Mitral Valve The mitral valve is normal by two-dimensional, color flow and Doppler interrogation. Trace mitral regurgitation. Aortic Valve The aortic valve is trileaflet and normal by two-dimensional, color flow and Doppler interrogation. There is no significant aortic valve regurgitation. Tricuspid Valve The tricuspid valve is normal by two-dimensional, color flow and Doppler interrogation. There is moderate tricuspid regurgitation. Pulmonic Valve The pulmonic valve is not well visualized. There is no significant pulmonic valve regurgitation. Vessels The pulmonary artery appears normal. The inferior vena cava pulmonary and hepatic veins appear normal. Pericardium The pericardium is normal by two-dimensional imaging. There is no significant pericardial effusion. CONCLUSIONS Indication: CHF Volume overload Normal LV size. Mild LVH. Severely reduced LV systolic function. Estimated EF at 30-35-%. Diastolic dysfunction cannot be graded beacuse of the pacemaker wire. Moderately dilated RV and mild RV systolic function. Etimated RVSP around 60 mmHg. Moderate to severe PAH Trace to mild MR. There is moderate TR. Moderately increased LA volume. No pericardial effusion. Kameron Cheney (Electronically Signed) Final Date: 06 April 2025 00:24
--- NOTE | 2025-04-05 13:43 | PD.RESCONSUL ---
HPI Data of Consult Consult date: 04/05/25 Primary Care Provider: Adrienne Bronson MD Consult Narrative Reason for consult: Ruling out stroke History of present illness: This patient is a 59-year-old female with past medical history of ESRD on dialysis M/W/F follows Dr. Nicole, heart failure, hypertension, diabetes, hyperlipidemia, prior stroke with residual left-sided hemiparesis, left facial droop and mild dysarthria, seizures presented to the ED on 04/05/2025 with chief complaint of reemergence of prior stroke symptoms of left facial droop, dysarthria and left hemiparesis along with 1 week history of headache, abdominal pain and nausea along with fluctuating blood pressure. IV thrombolysis was not recommended due to concern for recrudescence in the setting of illness/hypertensive encephalopathy. IV thrombolysis was not given due to concern for increased risk of hemorrhage. NIHSS score 6. Patient stated that she did not complete her dialysis session today as her blood pressure was soft. EMS took her to the ED as her systolic blood pressure was in 80s. ED course: In the ED, patient received Tylenol 650 mg p.o. x 1 and aspirin was given. Patient started on Bumex, Rocephin, azithromycine. Labs revealed normal white count and hemoglobin. Chemistry panel consistent with ESRD pattern. Potassium 4.7. Blood glucose 158. Troponin I 0.128. BNP 1480. Urinalysis showed proteins, glucose and blood with mild WBCs. U tox was not performed. Chest x-ray showed bibasilar pneumonia. PMH: As above PSH:- SH: 44-vitu-sufd smoking history, denies drinking alcohol. Take marijuana Gummies. Allergies: Titanium Home medications: Bumex 1 mg twice daily, gabapentin 300 mg at bedtime, aspirin 81 mg, guaifenesin as needed, lorazepam as needed, metoprolol tartrate, Tylenol, citalopram Patient reported that she feels hungry and wants to eat and reported to have headache as well. She had impaired attention and requires prompting to follow instructions and answer questions. She is alert and oriented to time place and person. Will follow-up with MRI brain without contrast and EEG. Recommended to continue aspirin and statin.Will follow-up with MRI brain as patient's symptoms of asymmetrical forehead wrinkling and partial left eye lid closure are concerning for stroke cc:: cc: Review of Systems Review of Systems Systems Reviewed: All systems reviewed, normal except as documented Past Medical History Past Medical History NEUROLOGIC: Positive Cerebrovascular Accident CARDIAC: Positive Cardiac Disorders, Myocardial Infarction, Angina, Coronary Artery Disease, Congestive Heart Failure, Edema and Hypertension ENT: Positive Blind ENDOCRINE: Positive Endocrine Disorders, Diabetes Mellitus Type 1 and Diabetes Mellitus Type 2 HEMATOLOGIC: Positive Sickle Cell Disease PSYCHO/SOCIAL: Positive Depression OTHER HISTORY: Positive Blood Transfusions Family History FAMILY HISTORY: Negative Family Cardiac Disorders Surgical History SURGICAL: Positive Cardiac Surgery, Coronary Stent and Amputation Social History SMOKING STATUS: Unknown if ever smoked SUBSTANCE USE: methamphetamine Exam Vital Signs Temp Pulse Resp BP Pulse Ox O2 Del Method O2 Flow Rate 98.1 F 69 20 177/99 H 97 Nasal Cannula 1 04/05/25 11:40 04/05/25 13:15 04/05/25 13:15 04/05/25 11:40 04/05/25 13:15 04/05/25 11:40 04/05/25 13:15 Narrative Exam GENERAL APPEARANCE: AxOx4, elderly female in no acute distress. HEENT: NC, AT. MMM. EOMI, clear conjunctiva, oropharynx clear. Cataract in both eyes. Left eye lid partially closed. NECK: Supple without lymphadenopathy. No stiffness or restricted ROM.Right IJ catheter in place. HEART: Regular rate and regular rhythm, normal S1/S2, no m/r/g LUNGS: CTAB, moving air well. No crackles or wheezes are heard. ABDOMEN: Soft, nontender, nondistended with good bowel sounds heard. BACK: No CVAT, no obvious deformity. EXTREMITIES: Without cyanosis, clubbing or edema. Left BKA. NEUROLOGICAL: Grossly nonfocal. Alert and oriented, x 3. Left facial decreased sensation to touch and nasolabial fold flattening. Tongue midline able to move [id number]. Impaired attention. Requires prompting to follow instructions/answer questions. Left BKA. Power in left upper extremity 3/5, power in right upper extremity 4/5, power in right lower extremity 5/5. Skin: Warm and dry without any rash. Psych: Sometimes delayed responses however conversational Results Labs 04/05/25 10:26 04/05/25 16:37 Labs: Short CBC 04/05/25 Range/Units 10: WBC 8.2 (3.6-11.0) Thou/mm3 Hgb 13.9 (12.0-16.0) g/dL Hct 40.6 (36.0-46.0) % Plt Count 114 L (140-440) Thou/mm3 BMP 04/05/25 10:58 Sodium 138 Potassium 4.7 Chloride 104 Carbon Dioxide 26.2 BUN 60 H Creatinine 5.0 H* Glucose 158 H Calcium 9.7 Cardiac Enzymes 04/05/25 Range/Units 10:58 Troponin I 0.128 H* (0.0-0.045) ng/mL Liver Function 04/05/25 Range/Units 10:58 Total Bilirubin 0.3 (0.3-1.2) mg/dL AST 24 (0-34) U/L ALT 16 (10-49) U/L Alkaline Phosphatase 76 (46-116) U/L Albumin 3.9 (3.4-4.8) gm/dL Urine 04/05/25 Range/Units 10:58 Urine Color Lt-Yellow (Lt Yel-Yel) Urine Clarity Clear (Clear/Hazy) Urine pH 6.0 (5.0-7.0) Ur Specific [place] 1.010 (1.001-1.035) Urine Protein 2+ A (Neg - Trace) Urine Glucose (UA) 2+ A (Negative) ABG Interpretation ABG results: 04/05/25 10:26 VBG pH 7.32 L VBG pCO2 46 VBG pO2 80 H VBG Base Excess -3 Quality Measures Quality Measures stroke Suspected type of Stroke: Non Acute Last known well (date): 04/05/25 Last known well (time): 11:05 Tenecteplase given: Reason(s) Tenecteplase not given: Stroke severity too mild (non-disabling) (suspected recrudescence, encephalopathy.) not given Rehab services: PT evaluation ordered VTE Prophylaxis: pharmaceutical Antithrombotic by day 2:: not indicated (describe) Statin ordered: <75 y/o high intensity dose Anticoagulation ordered for A-fib or flutter (current or hx): not indicated Medications Home Medications and Allergies Home Medications ?Medication ?Instructions ?Recorded ?Confirmed ?Type amlodipine 10 mg tablet 1 tab PO QDAY 01/20/22 01/20/22 History aripiprazole 10 mg tablet 1 tab PO QDAY 01/20/22 01/20/22 History atorvastatin 80 mg tablet 1 tab PO HS 01/20/22 01/20/22 History bumetanide 0.5 mg tablet 2 tab PO BID 01/20/22 04/05/25 History citalopram 20 mg tablet 20 mg PO QDAY 01/20/22 01/20/22 History docusate sodium 250 mg capsule 1 cap PO BID PRN Constipation 01/20/22 01/20/22 History empagliflozin 25 mg tablet 1 tab PO QDAY 01/20/22 04/12/24 History (Jardiance) metoprolol tartrate 25 mg tablet 1 tab PO BID 01/20/22 04/05/25 History Allergies Allergy/AdvReac Type Severity Reaction Status Date / Time titanium Allergy Verified 12/31/20 20:57 Visit Medications Acetaminophen (Acetaminophen 325 Mg Tablet) 650 mg PO Q6H PRN; Protocol PRN Reason: Fever >101.5 Stop: 05/05/25 12:53 Albuterol (Albuterol Rt 2.5 Mg/0.5 Ml Nebu) 2.5 mg INH Q4H PRN PRN Reason: SHORTNESS OF BREATH OR WHEEZE Stop: 05/05/25 12:53 Aspirin (Aspirin Ec 81 Mg Tabec) 81 mg PO QDAY YANA Stop: 05/05/25 13:14 Atorvastatin Calcium (Atorvastatin Calcium 10 Mg Tablet) 40 mg PO HS YANA Stop: 05/05/25 20:59 Bumetanide (Bumetanide Inj 0.25 Mg/Ml Vial 4 Ml) 1 mg IVP BID YANA Stop: 05/05/25 13:14 Dextrose (Dextrose 50%-Water Inj 50 Ml Syringe) 25 ml IV Q15MIN PRN PRN Reason: BG 50-70 responsive npo pt Stop: 05/05/25 13:00 Dextrose (Dextrose 50%-Water Inj 50 Ml Syringe) 50 ml IV Q15MIN PRN PRN Reason: BG <50 OR BG <70 & pt unresponsive Stop: 05/05/25 13:00 Glucagon (Glucagon Inj 1 Mg Vial) 1 mg IM Q15MIN PRN PRN Reason: BG <70, and no IV access Heparin Sodium (Porcine) (Heparin Sod Inj 5000 Unit/Ml Vial) 5,000 unit SC Q12HR YANA Stop: 04/19/25 12:59 Ceftriaxone Sodium/Dextrose (Rocephin/D5w 1gm Iv Premix) 1 gm in 50 mls @ 100 mls/hr IV QDAY YANA Stop: 04/13/25 08:59 Azithromycin 500 mg/ Sodium (Chloride) 250 mls @ 250 mls/hr IV QDAY YANA Stop: 04/08/25 13:07 Azithromycin 500 mg/ Sodium (Chloride) 250 mls @ 250 mls/hr IV X1 ONE Stop: 04/05/25 14:14 Insulin Degludec (Insulin Degludec 5 Unit/0.05 Ml (Per 5 Units)) 20 unit SC HS YANA Stop: 05/05/25 20:59 Insulin Human Lispro (Insulin Lispro (Admelog) 1 Unit/0.01 Ml Unit) 0 unit SC AC YANA; Protocol Stop: 05/05/25 16:59 Ondansetron HCl (Ondansetron Inj 2 Mg/Ml Inj 2 Ml) 4 mg IVP Q6H PRN; Protocol PRN Reason: NAUSEA OR VOMITING Stop: 05/05/25 12:53 Pantoprazole Sodium (Pantoprazole 40 Mg Tablet) 40 mg PO QDAY YANA Stop: 05/06/25 08:59 Sodium Chloride (Sodium Chloride Rt [place] 0.9% 3 Ml Nebu) 3 ml INH PRN PRN PRN Reason: SOLN Stop: 05/05/25 12:53 Discontinued Medications Acetaminophen (Acetaminophen 325 Mg Tablet) 650 mg PO X1 ONE Stop: 04/05/25 10:04 Last Admin: 04/05/25 10:16 Dose: 650 mg Ceftriaxone Sodium/Dextrose (Rocephin/D5w 1gm Iv Premix) 1 gm in 50 mls @ 100 mls/hr IV STAT STA Stop: 04/05/25 12:32 Last Admin: 04/05/25 12:25 Dose: 100 mls/hr Assessment & Plan Plan Patient presented with reemergence of prior stroke symptoms of left facial droop, dysarthria and left hemiparesis along with 1 week history of headache, abdominal pain and nausea along with fluctuating blood pressure from dialysis unit. Admitted for possible stroke workup. #Stroke workup DDx: Recrudence versus press syndrome Patient presented with reemergence of prior stroke symptoms of left facial droop, dysarthria and left hemiparesis along with 1 week history of headache, abdominal pain and nausea along with fluctuating blood pressure. Last well-known time 11:00, initial response time 11:12 with no speaking, straining and left facial droop. NIHSS score 6. Patient was not deemed candidate for thrombolytic because of suspected recrudescence, encephalopathy. CT brain and head and neck CTA were negative for acute changes. Previous MRI from 2019 showed acute small infarcts in right parietal lobe. Plan: Will follow-up with MRI brain as patient's symptoms of asymmetrical forehead wrinkling and partial left eye lid closure are concerning for stroke Continue aspirin and statin Follow-up with EEG and MRI brain without contrast Echo with bubble study Physical therapy/speech therapy Neurochecks Q4 hourly Aspiration precautions Seizure precautions Follow-up with lab work #History of hypertension #History of seizures #Insulin-dependent type 2 diabetes #NSTEMI type II likely supply/demand ischemia #Hyperlipidemia #ESRD on dialysis M/W/F Rest of management as per primary care team. Plan of care discussed with neurologist, Dr Nacho Shipley MD, PGY 3 Attending Provider Attestation/Addendum I personally have seen and examined the patient virtually and I agreed with the resident's findings, assessment and plan of care. Patient presenting symptoms are suggestive of another ischemic event/TIA/hypertensive urgency CT brain and CT angio of the head were negative for acute changes. Will follow-up with MRI brain, EEG and Echo. continue with aspirin and statin.
[2025-04-05] MEDS: ASPIRIN EC 81 MG TABEC PO (13:54)
[2025-04-05] MEDS: BUMETANIDE INJ 0.25 MG/ML VIAL 4 ML 1 MG IVP ×2 (13:54→20:57)
[2025-04-05] MEDS: HEPARIN SOD INJ 5000 UNIT/ML VIAL SC ×2 (13:59→20:58)
[2025-04-05] MEDS: AZITHROMYCIN INJ 500 MG in SODIUM CHLORIDE 0.9% 250 ML 250 ML 250 MG IV (14:00)
--- NOTE | 2025-04-05 14:02 | ESHP_ITS ---
<Statement entered by Ishmael Buckner MD - 04/05/25 20:03> 59-year-old female with past medical history of ESRD ([facility], followed by Dr. 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 Flores in [place]), insulin-dependent type 2 diabetes mellitus who is admitted for stroke workup versus recrudescence versus PRES. CT head CTA head/neck unremarkable. Neurology following, MRI brain and EEG pending. Rapid response for hypoglycemia, please see event note for details. Degludec scheduled for 9 PM with bedside blood glucose check at midnight and will adjust accordingly. Patient has had recent fluctuations in blood pressure and per daughter has had blood sugars as high as 700s. Given labile blood pressures and blood sugars, suspect patient may not be taking her medications as directed. Will continue to evaluate while in house. ----- Note reviewed and agree with care plan as documented. Please refer to the note below for further details. Plan discussed with attending physician Dr. Main Buckner MD PGY-2 Internal Medicine Documentation for date of: 04/05/25 HPI History of Present Illness History of present illness: Cyn Amaya is a 59-year-old female with a history of ESRD ([facility], followed by Dr. 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 Flores in [place]), insulin-dependent type 2 diabetes mellitus who presented to the ED on 04/05/2025 with chief complaint of reemergence of prior stroke symptoms of left facial droop, dysarthria and left hemiparesis along with 1 week history of headache, abdominal pain and nausea and fluctuating blood pressure. Woke up with headache this morning, noticed BP was elevated at home x2 times, both times taking her BP medication (metoprolol). She then went to HD where they found her BP to be in the 80s SBP. EMS was contacted who found her hypoxic in the 80s. Per patient she has home O2 but only takes it as needed. She reports associated nausea and weakness, denies fever, chills, chest pain, abdominal pain, vomiting, diarrhea. In ED, teleneuro was consulted and suspects recrudescence versus PRES syndrome given BP fluctuations. Recommended MRI brain, EEG, and goal BP of <160/90. CT head and CTA head/neck negative for acute changes. Per in-house neurology, recommended to continue aspirin and statin, echo with bubble study. PCP: Dr. Adrienne Bronson Does not have preference of MDM between daughter Javier Rizzo ([phone]) and son Luis Rizzo ([phone]). PMHx: ESRD, HTN, T2DM, CHF, CVA w/ L sided deficits Medications: Amlodipine 10mg, Aripiprazole 10mg, Atorvastatin 80mg, Citalopram, Jardiance 25mg, Metoprolol Tartrate 25 BID, Bumex 1mg BID, Gabapentin 300mg FHx: None SHx: 50 pack years cigarettes, no EtOH. Lives w/ daughter in their home. PSHx: Stents placed post-IN Allergies: NKDA Review of Systems Review of Systems Systems Reviewed: All systems reviewed, normal except as documented Exam Vital Signs Temp Pulse Resp BP Pulse Ox O2 Del Method O2 Flow Rate 98.1 F 63 20 173/90 H 97 Nasal Cannula 1 04/05/25 11:40 04/05/25 13:54 04/05/25 13:15 04/05/25 13:54 04/05/25 13:15 04/05/25 11:40 04/05/25 13:15 Narrative Exam General: AOx3, appears mildly distressed/agitated, able to speak full sentences HEENT: NC/AT, mucous membranes moist, bilateral sclera anicteric, prominent b/l cataracts w/ R eyelid droop pt claims is baseline Cardiovascular: regular rate and rhythm, S1/S2 present, no murmurs appreciated Pulmonary: clear to auscultation bilaterally, no rales/rhonchi/wheezes Abdominal: soft, non-tender, non-distended, no rebound/guarding, normal bowel sounds present Musculoskeletal: normal ROM, L BKA Skin: warm and dry, intact, no rashes Neuro: CN II-XII intact, sensation intact b/l extremities,left facial decreased sensation to touch and nasolabial fold flattening. Tongue midline able to move [id number]. Impaired attention. Requires prompting to follow instructions/answer questions. Left BKA. Power in left upper extremity 3/5, power in right upper extremity 4/5, power in right lower extremity 5/5. Results: Labs 04/05/25 10:26 04/05/25 16:37 Labs: Short CBC 04/05/25 Range/Units 10:26 WBC 8.2 (3.6-11.0) Thou/mm3 Hgb 13.9 (12.0-16.0) g/dL Hct 40.6 (36.0-46.0) % Plt Count 114 L (140-440) Thou/mm3 BMP 04/05/25 10:58 Sodium 138 Potassium 4.7 Chloride 104 Carbon Dioxide 26.2 BUN 60 H Creatinine 5.0 H* Glucose 158 H Calcium 9.7 Cardiac Enzymes 04/05/25 Range/Units 10:58 Troponin I 0.128 H* (0.0-0.045) ng/mL Liver Function 04/05/25 Range/Units 10:58 Total Bilirubin 0.3 (0.3-1.2) mg/dL AST 24 (0-34) U/L ALT 16 (10-49) U/L Alkaline Phosphatase 76 (46-116) U/L Albumin 3.9 (3.4-4.8) gm/dL Urine 04/05/25 Range/Units 10:58 Urine Color Lt-Yellow (Lt Yel-Yel) Urine Clarity Clear (Clear/Hazy) Urine pH 6.0 (5.0-7.0) Ur Specific [place] 1.010 (1.001-1.035) Urine Protein 2+ A (Neg - Trace) Urine Glucose (UA) 2+ A (Negative) ABG Interpretation ABG results: 04/05/25 10:26 VBG pH 7.32 L VBG pCO2 46 VBG pO2 80 H VBG Base Excess -3 Quality Measures Quality Measures stroke Suspected type of Stroke: Non Acute Last known well (date): 04/05/25 Last known well (time): 11:05 Tenecteplase given: Reason(s) Tenecteplase not given: Stroke severity too mild (non-disabling) (suspected recrudescence, encephalopathy.) not given Rehab services: PT evaluation ordered and Speech Language Pathology eval ordered VTE Prophylaxis: pharmaceutical Antithrombotic by day 2:: not indicated (describe) Statin ordered: <75 y/o high intensity dose Anticoagulation ordered for A-fib or flutter (current or hx): not indicated Medications Home Medications and Allergies Home Medications ?Medication ?Instructions ?Recorded ?Confirmed ?Type amlodipine 10 mg tablet 1 tab PO QDAY 01/20/2201/20 History aripiprazole 10 mg tablet 1 tab PO QDAY 01/20/2201/20 History atorvastatin 80 mg tablet 1 tab PO HS 01/20/22 2 History bumetanide 0.5 mg tablet 2 tab PO BID 01/20/22 History citalopram 20 mg tablet 20 mg PO QDAY 01/20/2201/20 History docusate sodium 250 mg capsule 1 cap PO BID PRN Consti pation 01/20/22 01/20/22 History empagliflozin 25 mg tablet 1 tab PO QDAY 01/20/2208/05 History (Jardiance) metoprolol tartrate 25 mg tablet 1 tab PO BID 01/20/22 04/05/25 History Allergies Allergy/AdvReac Type Severity Reaction Status Date / Time titanium Allergy Verified 12/31/20 20:57 Visit Medications Acetaminophen (Acetaminophen 325 Mg Tablet) 650 mg PO Q6H PRN; Protocol PRN Reason: Fever >101.5 Stop: 05/05/25 12:53 Albuterol (Albuterol Rt 2.5 Mg/0.5 Ml Nebu) 2.5 mg INH Q4H PRN PRN Reason: SHORTNESS OF BREATH OR WHEEZE Stop: 05/05/25 12:53 Aspirin (Aspirin Ec 81 Mg Tabec) 81 mg PO QDAY YANA Stop: 05/05/25 13:14 Last Admin: 04/05/25 13:54 Dose: 81 mg Atorvastatin Calcium (Atorvastatin Calcium 10 Mg Tablet) 40 mg PO HS YANA Stop: 05/05/25 20:59 Bumetanide (Bumetanide Inj 0.25 Mg/Ml Vial 4 Ml) 1 mg IVP BID YANA Stop: 05/05/25 13:14 Last Admin: 04/05/25 13:54 Dose: 1 mg Dextrose (Dextrose 50%-Water Inj 50 Ml Syringe) 25 ml IV Q15MIN PRN PRN Reason: BG 50-70 responsive npo pt Stop: 05/05/25 13:00 Dextrose (Dextrose 50%-Water Inj 50 Ml Syringe) 50 ml IV Q15MIN PRN PRN Reason: BG <50 OR BG <70 & pt unresponsive Stop: 05/05/25 13:00 Glucagon (Glucagon Inj 1 Mg Vial) 1 mg IM Q15MIN PRN PRN Reason: BG <70, and no IV access Heparin Sodium (Porcine) (Heparin Sod Inj 5000 Unit/Ml Vial) 5,000 unit SC Q12HR YANA Stop: 04/19/25 12:59 Last Admin: 04/05/25 13:59 Dose: 5,000 unit Ceftriaxone Sodium/Dextrose (Rocephin/D5w 1gm Iv Premix) 1 gm in 50 mls @ 100 mls/hr IV QDAY YANA Stop: 04/13/25 08:59 Azithromycin 500 mg/ Sodium (Chloride) 250 mls @ 250 mls/hr IV QDAY YANA Stop: 04/08/25 13:07 Azithromycin 500 mg/ Sodium (Chloride) 250 mls @ 250 mls/hr IV X1 ONE Stop: 04/05/25 14:14 Last Admin: 04/05/25 14:00 Dose: 250 mls/hr Insulin Degludec (Insulin Degludec 5 Unit/0.05 Ml (Per 5 Units)) 20 unit SC HS [facility] Stop: 05/05/25 20:59 Insulin Human Lispro (Insulin Lispro (Admelog) 1 Unit/0.01 Ml Unit) 0 unit SC AC YANA; Protocol Stop: 05/05/25 16:59 Ondansetron HCl (Ondansetron Inj 2 Mg/Ml Inj 2 Ml) 4 mg IVP Q6H PRN; Protocol PRN Reason: NAUSEA OR VOMITING Stop: 05/05/25 12:53 Pantoprazole Sodium (Pantoprazole 40 Mg Tablet) 40 mg PO QDAY YANA Stop: 05/06/25 08:59 Sodium Chloride (Sodium Chloride Rt [place] 0.9% 3 Ml Nebu) 3 ml INH PRN PRN PRN Reason: SOLN Stop: 05/05/25 12:53 Discontinued Medications Acetaminophen (Acetaminophen 325 Mg Tablet) 650 mg PO X1 ONE Stop: 04/05/25 10:04 Last Admin: 04/05/25 10:16 Dose: 650 mg Ceftriaxone Sodium/Dextrose (Rocephin/D5w 1gm Iv Premix) 1 gm in 50 mls @ 100 mls/hr IV STAT STA Stop: 04/05/25 12:32 Last Admin: 04/05/25 12:25 Dose: 100 mls/hr Assessment & Plan Plan Cyn Amaya is a 59-year-old female with a history of ESRD ([facility], followed by Dr. 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 Flores in [place]), insulin-dependent type 2 diabetes mellitus who was admitted for stroke work-up. #Encephalopathy possibly in setting of stroke #Recrudescence vs PRES Per neurology consult, ddx return/exacerbation of deficits d/t previous stroke vs PRES syndrome Patient presented with reemergence of prior stroke symptoms of left facial droop, dysarthria and left hemiparesis along with 1 week history of headache, abdominal pain and nausea along with fluctuating blood pressure. Last well-known time 11:00, initial response time 11:12 with no speaking, straining and left facial droop. NIHSS score 6. Patient was not deemed candidate for thrombolytic because of suspected recrudescence, encephalopathy. CT brain and head and neck CTA were negative for acute changes, however pt's asymmetrical forehead wrinkling and partial left eye lid closure concerning for focal deficit/stroke. Previous MRI from 2019 showed acute small infarcts in right parietal lobe. Passed nurse bedside swallow 04/05/25. - Neuro consulted, appreciated. Per recs will FU w/ MRI Brain + EEG - Cont home ASA and Statin - Echo w/ bubble study - PT/Speech Therapy - Neurochecks Q4 - Aspiration and Seizure precautions - Trend CBC/CMP in AM #HFrEF (s/p ICD, EF 30% in 2021) Follows Dr. Flores in [place]. - Bumex 1 g IV daily - Follow-up echo #History of hypertension Chronic, controlled. Pt became hypotensive after taking 2x daily Metoprolol Tartrate 25mg, however following admission is hypertensive in 150s-170s SBP. - Cont home Metoprolol as above - Labetalol 10 mg IV prn #[id number] smoking history, current smoker #? COPD - As needed DuoNeb - Nicotine patch #History of seizures Pt does not have recent hx of seizure, unlikely that current hospital stay is related to epileptic etiology. Pt is not medicated for seizures. - Monitor - Neurology following #Insulin-dependent type 2 diabetes Chronic, latest A1c 7.12 April 2024. Per pt takes 40 units L[place] at home in the morning. - Will order latest A1c - Degludec 20 units HS - SSI - Accuchecks - Bedside blood sugar at midnight in light of RR for hypoglycemia (see event note for details) #Hyperlipidemia - Will order latest lipid panel d/t suspicion stroke - Cont home Atorvastatin #ESRD on dialysis M/W/F - Nephro consulted - CMP in AM - Dialyze as scheduled Hospital management: Disposition: Pending further Neuro workup (MRI and EEG) Diet: Renal DVT prophylaxis: Heparin SC BID GI prophylaxis: Protonix 40mg PO qD CODE STATUS: full code ----- Plan discussed with attending physician Dr. Main Mendoza, Medical Student [facility] Attending Provider Attestation/Addendum I attest that I was physically present for the evaluation, physical examination, lab and imaging review of the patient with the residents. I discussed the case with the residents and agree with the findings and plans of care as documented above. After examination of the patient and review of the clinical data I feel that this patient needs admission to the hospital for further treatment/evaluation Whitney Quach MD
[2025-04-05] MEDS: DEXTROSE 50%-WATER INJ 50 ML SYRINGE 25 ML IV (16:29)
[2025-04-05 17:24] LABS: Amphetamine/Methamp Scrn,U Negative (Negative); Barbiturate Screen,Urine Negative (Negative); Benzodiazepines Screen,Urine Negative (Negative); Benzoylecgonine Screen, Ur Negative (Negative); Fentanyl Screen,Urine Negative (Negative); Opiate Screen,Urine Negative (Negative); THC Screen,Urine Negative (Negative)
[2025-04-05 17:25] LABS: Albumin, Serum 3.7 gm/dL (3.4-4.8); Anion Gap 9 (7-16); BUN/Creatinine Ratio 12 Ratio (12-20); Blood Urea Nitrogen 59 mg/dL (9-23); Calcium 9.0 mg/dL (8.3-10.6); Calcium (Corrected) 9.2 mg/dL (8.5-10.1); Carbon Dioxide 27.1 mMol/L (20.0-31.0); Chloride 103 mMol/L (98-107); Creatinine (Component) 5.0 mg/dL (0.6-1.3); Estimated Creatinine Clearance 12.0 mL/min (>60); Glucose 116 mg/dL (74-106); Osmolality,Calculated 295 (275-295); Phosphorous 4.7 mg/dL (2.4-5.1); Potassium 4.3 mMol/L (3.4-5.1); Sodium 139 mMol/L (136-145); eGFR 9 See Note
[2025-04-05 17:26] LABS: Troponin I 0.124 ng/mL (0.0-0.045)
--- NOTE | 2025-04-05 19:20 | PD.RESEVENT ---
Documentation for date of: 04/05/25 Event Note Event Note: RR called at approximately 4:30 PM for blood sugar in high 30s. Patient was alert and oriented upon arrival and was given IV dextrose, crackers, and pudding and subsequent blood sugar 30 minutes later showed blood sugar of 94. Insulin degludec to be given at 9 PM but with subsequent blood sugar check at midnight. Will adjust insulin/IV dextrose needs based on value. ----- Note reviewed and agree with care plan as documented. Please refer to the note below for further details. Plan discussed with attending physician Dr. Main Buckner MD PGY-2 Internal Medicine
--- NOTE | 2025-04-05 20:34 | RESP.EEG ---
PT REFUSED. GRETTA MELARA.
[2025-04-05] MEDS: ATORVASTATIN CALCIUM 10 MG TABLET 40 MG PO (20:55)
[2025-04-05] MEDS: INSULIN DEGLUDEC 5 UNIT/0.05 ML (PER 5 UNITS) 20 UNIT SC (20:58)
[2025-04-05 23:03] LABS: Hepatitis A Antibody IgM Non Reactive (Non React); Hepatitis B Core Antibody IgM Non Reactive (Non React); Hepatitis B Surface Antigen Non Reactive (Non React); Hepatitis C Antibody Non Reactive (Non React)
[2025-04-06] VITALS (17 sets, daily range): BP systolic 135–190; BP diastolic 78–97; PULSE 60–90; RESP 12–22; TEMP 35.9–36.4; O2SAT 92–99
[2025-04-06] MEDS: DEXTROSE 50%-WATER INJ 50 ML SYRINGE 25 ML IV (05:22)
[2025-04-06 05:27] LABS: Basophils # (Auto) 0.1 Thou/mm3 (0.0-0.2); Basophils % (Auto) 1 % (0-2.5); Eosinophils # (Auto) 0.4 Thou/mm3 (0.0-0.5); Eosinophils % (Auto) 4 % (0-10); Hematocrit 42.6 % (36.0-46.0); Hemoglobin 14.3 g/dL (12.0-16.0); Immature Granulocytes Auto 0.04 Thou/mm3 (0.00-0.00); Lymphocytes # (Auto) 3.9 Thou/mm3 (1.0-4.8); Lymphocytes % (Auto) 39 % (10-50); Mean Corpuscular HGB Conc 33.6 g/dl (31.0-37.0); Mean Corpuscular Hemoglobin 31.8 pg (25.0-35.0); Mean Corpuscular Volume 95 fL (80-100); Monocytes # (Auto) 0.8 Thou/mm3 (0.0-0.8); Monocytes % (Auto) 8 % (0-12); Neutrophils # (Auto) 4.7 Thou/mm3 (1.8-7.7); Neutrophils % (Auto) 47 % (37-80); Nucleated Red Blood Cell # 0.00 Thou/mm3 (0.00-0.00); Nucleated Red Blood Cell % 0 /100 WBC (0); Platelet Count 172 Thou/mm3 (140-440); RDW Standard Deviation 44.3 fL (36.4-46.3); Red Blood Count 4.49 Miln/mm3 (4.00-5.20); White Blood Count 10.1 Thou/mm3 (3.6-11.0)
[2025-04-06] MEDS: GLUCAGON INJ 1 MG VIAL IM (05:39)
[2025-04-06] MEDS: LABETALOL INJ 5 MG/ML VIAL 20 ML 10 MG IVP ×3 (05:40→23:56)
[2025-04-06] MEDS: ACETAMINOPHEN 325 MG TABLET 650 MG PO (05:41)
[2025-04-06 05:44] LABS: Glucose Estimated Average 203 mg/dL (80-131); Hemoglobin A1C 8.7 % Hgb (4.8-6.0)
[2025-04-06 05:51] LABS: Vitamin D 25 Hydroxy Total 36.4 ng/mL (7.3-40.2)
[2025-04-06 05:52] LABS: Parathyroid Hormone Intact 151.5 pg/ml (18.5-88.0)
--- NOTE | 2025-04-06 05:52 | PC.NURSE ---
Went in to assess pt and blood glucose was 24, gave D50, juice, and glucagon. Blood glucose went up to 138. MD Denis made aware. No new orders.
[2025-04-06 06:14] LABS: Alanine Aminotransferase 16 U/L (10-49); Albumin, Serum 3.8 gm/dL (3.4-4.8); Albumin/Globulin Ratio 1.8 (1.2-2.2); Alkaline Phosphatase 70 U/L (46-116); Anion Gap 13 (7-16); Aspartate Amino Transferase 27 U/L (0-34); BUN/Creatinine Ratio 10 Ratio (12-20); Bilirubin,Total 0.2 mg/dL (0.3-1.2); Blood Urea Nitrogen 53 mg/dL (9-23); Calcium 9.0 mg/dL (8.3-10.6); Calcium (Corrected) 9.2 mg/dL (8.5-10.1); Carbon Dioxide 24.7 mMol/L (20.0-31.0); Cardiac Risk Estimate 2.7 RATIO (3.7-5.6); Chloride 103 mMol/L (98-107); Cholesterol 181 mg/dL (132-200); Creatinine (Component) 5.1 mg/dL (0.6-1.3); Estimated Creatinine Clearance 11.8 mL/min (>60); Globulin 2.1 gm/dL (2.3-3.5); HDL Cholesterol 68 mg/dL (40-60); LDL Cholesterol,Calculated 89 mg/dL (0-130); Magnesium 2.2 mg/dL (1.6-2.6); Osmolality,Calculated 291 (275-295); Phosphorous 5.5 mg/dL (2.4-5.1); Potassium 3.7 mMol/L (3.4-5.1); Sodium 141 mMol/L (136-145); Thyroid Stimulating Hormone 1.72 uIU/mL (0.55-4.78); Total Protein 5.9 gm/dL (5.7-8.2); Triglycerides 119 mg/dL (30-150); Uric Acid 8.2 mg/dL (3.1-7.8); eGFR 9 See Note
[2025-04-06 06:31] LABS: Glucose 27 mg/dL (74-106)
--- NOTE | 2025-04-06 07:35 | PC.NURSE ---
Went in to check patient blood sugar. Pt said she has been calling the desk since 4 am saying that her bed is wet. Checked pt's bed. Bed was dry. Changed pad for pt's comfort and used molly gonzalez to take pt to bathroom.
[2025-04-06] MEDS: INSULIN LISPRO (AdmeLOG) 1 UNIT/0.01 ML UNIT SC ×2 (07:56→12:26)
--- NOTE | 2025-04-06 09:46 | PC.NURSE ---
Went in to give Patient 0900 oclock meds. Patient was feeling hot and cold. Slurred Speech, lethargic. Patient stated she did not feel good and that she felt like her blood sugar may be high. Checked Blood Sugar. 345. Called [facility].
[2025-04-06] MEDS: INSULIN HUM REGULAR 1 UNIT/0.01 ML (PER UNIT) 10 UNIT IV (10:01)
[2025-04-06] MEDS: cefTRIAXone/D5w 1gm IV premix 1 GM/50 ML BAG IV (10:06)
[2025-04-06] MEDS: AZITHROMYCIN INJ 500 MG in SODIUM CHLORIDE 0.9% 250 ML 250 ML 250 MG IV (10:06)
[2025-04-06] MEDS: HEPARIN SOD INJ 5000 UNIT/ML VIAL SC ×2 (10:07→20:37)
[2025-04-06] MEDS: ASPIRIN EC 81 MG TABEC PO (10:07)
[2025-04-06] MEDS: BUMETANIDE INJ 0.25 MG/ML VIAL 4 ML 1 MG IVP ×2 (10:07→20:36)
[2025-04-06] MEDS: PANTOPRAZOLE 40 MG TABLET PO (10:07)
[2025-04-06] MEDS: NICOTINE PATCH 14 MG/24 HR PATCH.TD24 TOP (10:08)
[2025-04-06 10:11] LABS: Base Excess, Venous -3 (-3-3); O2 Saturation, Venous 87 % (96-97); PCO2, Venous 50 mmHg (36-56); PO2, Venous 57 mmHg (15-58); pH, Venous 7.29 (7.33-7.66)
[2025-04-06 10:12] LABS: Lactate (Lactic Acid) 1.9 mMol/L (0.4-2.0)
[2025-04-06 10:14] LABS: Beta Hydroxybutyrate 0.1 mmol/L (<0.6)
--- NOTE | 2025-04-06 10:40 | PD.RESPRO ---
Documentation for date of: 04/06/25 Exam Vital Signs Temp Pulse Resp BP Pulse Ox O2 Del Method O2 Flow Rate 97.0 F 85 16 165/82 H 92 L Nasal Cannula 2 04/06/25 08:00 04/06/25 10:08 04/06/25 08:00 04/06/25 10:08 04/06/25 08:00 04/06/25 08:00 04/06/25 01:00 Objective Labs 04/06/25 05:00 04/06/25 05:00 Labs: Laboratory Results - last 24 hr 04/05/25 04/05/25 04/05/25 10:26 10:58 16:37 WBC 8.2 RBC 4.32 Hgb 13.9 Hct 40.6 MCV 94 MCH 32.2 MCHC 34.2 RDW Std Deviation 44.3 Plt Count 114 L Neut % (Auto) 72 Lymph % (Auto) 17 [place] % (Auto) 8 Eos % (Auto) 3 Baso % (Auto) 1 Neut # (Auto) 5.9 Lymph # (Auto) 1.4 [place] # (Auto) 0.6 Eos # (Auto) 0.2 Baso # (Auto) 0.1 Immature Gran # (Auto) 0.03 H Absolute Nucleated RBC 0.00 Immature Gran % 0 Nucleated RBC % 0 PT 10.9 INR 1.0 APTT 27.0 VBG pH VBG pCO2 VBG pO2 VBG O2 Sat ([place]) VBG Base Excess Sodium 138 139 Potassium 4.7 4.3 Chloride 104 103 Carbon Dioxide 26.2 27.1 Anion Gap 8 9 BUN 60 H 59 H Creatinine 5.0 H* 5.0 H* Estim Creat Clear Calc 11.6 L 12.0 L eGFR 9 L* 9 L* BUN/Creatinine Ratio 12 12 Glucose [address] Glu mg/dL Hemoglobin A1c Calculated Osmolality 295 295 Lactic Acid Uric Acid Calcium 9.7 9.0 Corrected Calcium 9.8 9.2 Phosphorus 4.7 Magnesium 2.2 Total Bilirubin 0.3 AST 24 ALT 16 Alkaline Phosphatase 76 Troponin I 0.128 H* 0.124 H* B-Natriuretic Peptide 1480 H* Total Protein 5.9 Albumin 3.9 3.7 Globulin 2.0 L Albumin/Globulin Ratio 2.0 Triglycerides Cholesterol LDL Cholesterol, Calc HDL Cholesterol Cholesterol/HDL Ratio 25-OH Vitamin D Total Beta-Hydroxybutyrate/Acetoacetate TSH PTH Intact Ur Collection Type Catheter Urine Color Lt-Yellow Urine Clarity Clear Urine pH 6.0 Ur Specific [place] 1.010 Urine Protein 2+ A Urine Glucose (UA) 2+ A Urine Ketones Negative Urine Blood 1+ A Urine Nitrite Negative Urine Bilirubin Negative Urine Urobilinogen (Auto) Negative Ur Leukocyte Esterase Positive Urine RBC 3 Urine WBC 39 H Ur Squamous Epith Cells 2 Urine Bacteria None Ur Culture Indicated? Yes Urine Opiates Screen Negative Urine Fentanyl Screen Negative Ur Barbiturates Screen Negative U Amphetamin/Meth Scrn Negative U Benzodiazepines Scrn Negative U Cocaine Metab Screen Negative U Marijuana (THC) Screen Negative Ethyl Alcohol < 3.0 Hepatitis A IgM Ab Non Reactive Hep Bs Antigen Non Reactive Hep B Core IgM Ab Non Reactive Hepatitis C Antibody Non Reactive Influenza A (Rapid) Negative Influenza B (Rapid) Negative 04/06/25 04/06/25 05:00 10:06 WBC 10.1 RBC 4.49 Hgb 14.3 Hct 42.6 MCV 95 MCH 31.8 MCHC 33.6 RDW Std Deviation 44.3 Plt Count 172 D Neut % (Auto) 47 Lymph % (Auto) 39 [place] % (Auto) 8 Eos % (Auto) 4 Baso % (Auto) 1 Neut # (Auto) 4.7 Lymph # (Auto) 3.9 [place] # (Auto) 0.8 Eos # (Auto) 0.4 Baso # (Auto) 0.1 Immature Gran # (Auto) 0.04 H Absolute Nucleated RBC 0.00 Immature Gran % 0 Nucleated RBC % 0 PT INR APTT VBG pH 7.29 L VBG pCO2 50 VBG pO2 57 D VBG O2 Sat ([place]) 87 L VBG Base Excess -3 Sodium 141 Potassium 3.7 D Chloride 103 Carbon Dioxide 24.7 Anion Gap 13 BUN 53 H Creatinine 5.1 H* Estim Creat Clear Calc 11.8 L eGFR 9 L* BUN/Creatinine Ratio 10 L Glucose 27 L* D Estimated Ave Glu mg/dL 203 H Hemoglobin A1c 8.7 H Calculated Osmolality 291 Lactic Acid 1.9 Uric Acid 8.2 H Calcium 9.0 Corrected Calcium 9.2 Phosphorus 5.5 H Magnesium 2.2 Total Bilirubin 0.2 L AST 27 ALT 16 Alkaline Phosphatase 70 Troponin I B-Natriuretic Peptide Total Protein 5.9 Albumin 3.8 Globulin 2.1 L Albumin/Globulin Ratio 1.8 Triglycerides 119 Cholesterol 181 LDL Cholesterol, Calc 89 HDL Cholesterol 68 H Cholesterol/HDL Ratio 2.7 L 25-OH Vitamin D Total 36.4 Beta-Hydroxybutyrate/Acetoacetate 0.1 TSH 1.72 PTH Intact 151.5 H Ur Collection Type Urine Color Urine Clarity Urine pH Ur Specific [place] Urine Protein Urine Glucose (UA) Urine Ketones Urine Blood Urine Nitrite Urine Bilirubin Urine Urobilinogen (Auto) Ur Leukocyte Esterase Urine RBC Urine WBC Ur Squamous Epith Cells Urine Bacteria Ur Culture Indicated? Urine Opiates Screen Urine Fentanyl Screen Ur Barbiturates Screen U Amphetamin/Meth Scrn U Benzodiazepines Scrn U Cocaine Metab Screen U Marijuana (THC) Screen Ethyl Alcohol Hepatitis A IgM Ab Hep Bs Antigen Hep B Core IgM Ab Hepatitis C Antibody Influenza A (Rapid) Influenza B (Rapid) ABG Interpretation ABG results: 04/05/25 04/06/25 10:26 10:06 VBG pH 7.32 L 7.29 L VBG pCO2 46 50 VBG pO2 80 H 57 D VBG Base Excess -3 -3 Quality Measures Quality Measures stroke Suspected type of Stroke: Non Acute Last known well (date): 04/05/25 Last known well (time): 11:05 Tenecteplase given: Reason(s) Tenecteplase not given: Stroke severity too mild (non-disabling) (suspected recrudescence, encephalopathy.) not given Assessment & Plan Assessment Current Active Medications: Generic Name Dose Route Start Last Admin Trade Name Freq PRN Reason Stop Dose Admin Acetaminophen 650 mg 04/05/25 12:54 04/06/25 05:41 Acetaminophen 325 Mg Tablet PO 05/05/25 12:53 650 mg Q6H PRN Administration Fever >101.5 Protocol Albuterol 2.5 mg 04/05/25 12:54 Albuterol Rt 2.5 Mg/0.5 Ml Nebu INH 05/05/25 12:53 Q4H PRN SHORTNESS OF BREATH OR WHEEZE Aspirin 81 mg 04/05/25 13:15 04/06/25 10:07 Aspirin Ec 81 Mg Tabec PO 05/05/25 13:14 81 mg QDAY YANA Administration Atorvastatin Calcium 40 mg 04/05/25 21:00 04/05/25 20:55 Atorvastatin Calcium 10 Mg Tablet PO 05/05/25 20:59 40 mg HS YANA Administration Bumetanide 1 mg 04/05/25 13:15 04/06/25 10:07 Bumetanide Inj 0.25 Mg/Ml Vial 4 Ml IVP 05/05/25 13:14 1 mg BID YANA Administration Dextrose 25 ml 04/05/25 13:01 04/06/25 05:22 Dextrose 50%-Water Inj 50 Ml Syringe IV 05/05/25 13:00 25 ml Q15MIN PRN Administration BG 50-70 responsive npo pt Dextrose 50 ml 04/05/25 13:01 Dextrose 50%-Water Inj 50 Ml Syringe IV 05/05/25 13:00 Q15MIN PRN BG <50 OR BG <70 & pt unresponsive Glucagon 1 mg 04/05/25 13:01 04/06/25 05:39 Glucagon Inj 1 Mg Vial IM 1 mg Q15MIN PRN Administration BG <70, and no IV access Heparin Sodium (Porcine) 5,000 unit 04/05/25 13:00 04/06/25 10:07 Heparin Sod Inj 5000 Unit/Ml Vial SC 04/19/25 12:59 5,000 unit Q12HR YANA Administration Ceftriaxone Sodium/Dextrose 1 gm in 50 mls @ 100 mls/hr 04/06/25 09:00 04/06/25 10:06 Rocephin/D5w 1gm Iv Premix IV 04/13/25 08:59 100 mls/hr QDAY YANA Administration Azithromycin 500 mg/ Sodium 250 mls @ 250 mls/hr 04/06/25 09:00 04/06/25 10:06 Chloride IV 04/12/25 08:59 250 mls/hr QDAY YANA Administration Insulin Degludec 5 unit 04/06/25 21:00 Insulin Degludec 5 Unit/0.05 Ml (Per 5 Units) SC 05/06/25 20:59 HS [facility] Insulin Human Lispro 0 unit 04/06/25 10:30 Insulin Lispro (Admelog) 1 Unit/0.01 Ml Unit SC 05/06/25 10:29 Q4H [facility] Protocol Labetalol HCl 10 mg 04/05/25 18:01 04/06/25 10:08 Labetalol Inj 5 Mg/Ml Vial 20 Ml IVP 05/05/25 18:00 10 mg Q15MIN PRN Administration Hypertension Metoprolol Tartrate 25 mg 04/06/25 21:00 Metoprolol Tartrate 25 Mg Tablet PO 05/06/25 20:59 BID YANA Nicotine 14 mg 04/06/25 09:00 04/06/25 10:08 Nicotine Patch 14 Mg/24 Hr Patch.Td24 TOP 05/06/25 08:59 14 mg QDAY YANA Administration Ondansetron HCl 4 mg 04/05/25 12:54 Ondansetron Inj 2 Mg/Ml Inj 2 Ml IVP 05/05/25 12:53 Q6H PRN NAUSEA OR VOMITING Protocol Pantoprazole Sodium 40 mg 04/06/25 09:00 04/06/25 10:07 Pantoprazole 40 Mg Tablet PO 05/06/25 08:59 40 mg QDAY YANA Administration Polyethylene Glycol 17 gm 04/06/25 09:00 04/06/25 10:17 Polyethylene Glycol 17 Gm Packet PO 05/06/25 08:59 Not Given QDAY YANA Sennosides 1 tab 04/06/25 05:09 Senna/Docusate Sod 1 Tab Tablet PO 05/06/25 05:08 QDAY PRN CONSTIPATION Protocol Sodium Chloride 3 ml 04/05/25 12:54 Sodium Chloride Rt [place] 0.9% 3 Ml Nebu INH 05/05/25 12:53 PRN PRN SOLN
--- NOTE | 2025-04-06 10:41 | PD.RESCONSUL ---
HPI Data of Consult Consult date: 04/06/25 Requesting Physician: Whitney Quach MD Admitting Provider: Whitnye Quach MD Attending Provider: Whitney Quach MD Primary Care Provider: Adrienne Bronson MD Consult Narrative Reason for consult: ESRD History of present illness: History of Present Illness: 59-year-old female with a history of ESRD (MWF, followed by Dr. 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 Flores in [place]), insulin-dependent type 2 diabetes mellitus presented to the hospital on 04/05/2025 for acute onset of left facial droop, dysarthria, left hemiparesis. Patient endorses abdominal pain, and nausea and reported fluctating blood pressure, with 2 incidence of high BP reading. She reported headache earlier in the moring. On arrival, BP was significantly elevated. During her hemodialysis schedule on Thursday, she had to stop her session midway because she developed hypotenion (BP in 80s), hypoxia, and diaphoresis. Telenurology consultation considered recrudescence VS PRES in the context of her BP fluctuations. Patient has been admitted to the monitor her neurologic symptoms. Nephrology has been consulted for management of her ESRD. ED course: In ED, teleneuro was consulted and suspects recrudescence versus PRES syndrome given BP fluctuations. Recommended MRI brain, EEG, and goal BP of <160/90. CT head and CTA head/neck negative for acute changes. Per in-house neurology, recommended to continue aspirin and statin, echo with bubble study. PMHx: ESRD, HTN, T2DM, CHF, CVA w/ L sided deficits Medications: Amlodipine 10mg, Aripiprazole 10mg, Atorvastatin 80mg, Citalopram, Jardiance 25mg, Metoprolol Tartrate 25 BID, Bumex 1mg BID, Gabapentin 300mg FHx: None SHx: 50 pack years cigarettes, no EtOH. Lives w/ daughter in their home. PSHx: Stents placed post-RI Allergies: NKDA 04/06/2025: Labs reviewed and patient examined at the bedside. BUN :53, Cr:5.1, eGFR:9, K: 3.7. Patient has stopped her hemodialysis midway on thursday. Will resume her hemodialysis tomorrow. No need for hemodialysis today. cc:: cc: Whitney Quach MD Review of Systems Review of Systems Narrative Review of Systems: All 12 systems assessed and the patient denies unless otherwise stated in HPI Exam Vital Signs Temp Pulse Resp BP Pulse Ox O2 Del Method O2 Flow Rate 97.0 F 85 16 165/82 H 92 L Nasal Cannula 2 04/06/25 08:00 04/06/25 10:08 04/06/25 08:00 04/06/25 10:08 04/06/25 08:00 04/06/25 08:00 04/06/25 01:00 Narrative Exam General: In distress, and agitated. AAO x3 Eye: normal conjunctiva, no scleral icterus HENT: Normocephalic, atraumatic, hearing intact to conversation at normal volume, moist oral mucosa Neck: Supple, non-tender, no JVD, no lymphadenopathy Lungs: Non-labored respirations, symmetric chest rise, Clear to auscultate bilaterally, No wheezing, rhonchi, crackles Heart: Peripheral pulses intact bilaterally, Regular Rate and Rhythm. Abdomen: Soft, non-tender, non-distended, no palpable masses Musculoskeletal: No cyanosis or edema, No visible joint swelling, left BKA Skin: Skin is warm, dry, no rashes or lesions. Psychiatric: Cooperative, appropriate mood and affect, Awake and alert, not agitated Neuro: Cranial nerves II-XII grossly intact. left facial sensation decreased. Results Labs 04/06/25 05:00 04/06/25 05:00 Labs: Short CBC 04/05/25 04/06/25 Range/Units 10:26 05:00 WBC 8.2 10.1 (3.6-11.0) Thou/mm3 Hgb 13.9 14.3 (12.0-16.0) g/dL Hct 40.6 42.6 (36.0-46.0) % Plt Count 114 L 172 D (140-440) Thou/mm3 BMP 04/05/25 04/05/25 04/06/25 10:58 16:37 05:00 Sodium 138 139 141 Potassium 4.7 4.3 3.7 D Chloride 104 103 103 Carbon Dioxide 26.2 27.1 24.7 BUN 60 H 59 H 53 H Creatinine 5.0 H* 5.0 H* 5.1 H* Glucose 158 H 116 H 27 L* D Calcium 9.7 9.0 9.0 Cardiac Enzymes 04/05/25 04/05/25 Range/Units 10:58 16:37 Troponin I 0.128 H* 0.124 H* (0.0-0.045) ng/mL Liver Function 04/05/25 04/05/25 04/06/25 Range/Units 10:58 16:37 05:00 Total Bilirubin 0.3 0.2 L (0.3-1.2) mg/dL AST 24 27 (0-34) U/L ALT 16 16 (10-49) U/L Alkaline Phosphatase 76 70 (46-116) U/L Albumin 3.9 3.7 3.8 (3.4-4.8) gm/dL Urine 04/05/25 Range/Units 10:58 Urine Color Lt-Yellow (Lt Yel-Yel) Urine Clarity Clear (Clear/Hazy) Urine pH 6.0 (5.0-7.0) Ur Specific [place] 1.010 (1.001-1.035) Urine Protein 2+ A (Neg - Trace) Urine Glucose (UA) 2+ A (Negative) ABG Interpretation ABG results: 04/05/25 04/06/25 10:26 10:06 VBG pH 7.32 L 7.29 L VBG pCO2 46 50 VBG pO2 80 H 57 D VBG Base Excess -3 -3 Quality Measures Quality Measures stroke Suspected type of Stroke: Non Acute Last known well (date): 04/05/25 Last known well (time): 11:05 Tenecteplase given: Reason(s) Tenecteplase not given: Stroke severity too mild (non-disabling) (suspected recrudescence, encephalopathy.) not given Rehab services: PT evaluation ordered VTE Prophylaxis: pharmaceutical Antithrombotic by day 2:: ordered Statin ordered: <75 y/o high intensity dose Anticoagulation ordered for A-fib or flutter (current or hx): ordered Medications Home Medications and Allergies Home Medications ?Medication ?Instructions ?Recorded ?Confirmed ?Type bumetanide 0.5 mg tablet 1 mg PO BID 01/20/22 04/06/25 History metoprolol tartrate 25 mg tablet 1 tab PO BID 01/20/22 04/05/25 History acetaminophen 500 mg tablet 1,000 mg PO Q8HR PRN pain or 04/06/25 04/06/25 History arthritis gabapentin 300 mg capsule 300 mg PO QDAY 04/06/25 04/06/25 History guaifenesin 400 mg tablet 400 mg PO Q8HR PRN cough 04/06/25 04/06/25 History insulin glargine 100 unit/mL (3 40 unit subcut QDAY 04/06/25 04/06/25 History mL) subcutaneous pen (Lantus Solostar U-100 Insulin) lorazepam 2 mg tablet (Ativan) 2 mg PO BID 04/06/25 04/06/25 History metoprolol tartrate 50 mg tablet 50 mg PO BID 04/06/25 04/06/25 History sucroferric oxyhydroxide 500 mg 1,000 mg PO TID 04/06/25 04/06/25 History chewable tablet (Velphoro) vitamin B complex-vitamin C-folic 1 tab PO QDAY 04/06/25 04/06/25 History acid 0.8 mg tablet Allergies Allergy/AdvReac Type Severity Reaction Status Date / Time titanium Allergy Verified 12/31/20 20:57 Visit Medications Acetaminophen (Acetaminophen 325 Mg Tablet) 650 mg PO Q6H PRN; Protocol PRN Reason: Fever >101.5 Stop: 05/05/25 12:53 Last Admin: 04/06/25 05:41 Dose: 650 mg Albuterol (Albuterol Rt 2.5 Mg/0.5 Ml Nebu) 2.5 mg INH Q4H PRN PRN Reason: SHORTNESS OF BREATH OR WHEEZE Stop: 05/05/25 12:53 Aspirin (Aspirin Ec 81 Mg Tabec) 81 mg PO QDAY YANA Stop: 05/05/25 13:14 Last Admin: 04/06/25 10:07 Dose: 81 mg Atorvastatin Calcium (Atorvastatin Calcium 10 Mg Tablet) 40 mg PO HS YANA Stop: 05/05/25 20:59 Last Admin: 04/05/25 20:55 Dose: 40 mg Bumetanide (Bumetanide Inj 0.25 Mg/Ml Vial 4 Ml) 1 mg IVP BID YANA Stop: 05/05/25 13:14 Last Admin: 04/06/25 10:07 Dose: 1 mg Dextrose (Dextrose 50%-Water Inj 50 Ml Syringe) 25 ml IV Q15MIN PRN PRN Reason: BG 50-70 responsive npo pt Stop: 05/05/25 13:00 Last Admin: 04/06/25 05:22 Dose: 25 ml Dextrose (Dextrose 50%-Water Inj 50 Ml Syringe) 50 ml IV Q15MIN PRN PRN Reason: BG <50 OR BG <70 & pt unresponsive Stop: 05/05/25 13:00 Glucagon (Glucagon Inj 1 Mg Vial) 1 mg IM Q15MIN PRN PRN Reason: BG <70, and no IV access Last Admin: 04/06/25 05:39 Dose: 1 mg Heparin Sodium (Porcine) (Heparin Sod Inj 5000 Unit/Ml Vial) 5,000 unit SC Q12HR [facility] Stop: 04/19/25 12:59 Last Admin: 04/06/25 10:07 Dose: 5,000 unit Ceftriaxone Sodium/Dextrose (Rocephin/D5w 1gm Iv Premix) 1 gm in 50 mls @ 100 mls/hr IV QDAY [facility] Stop: 04/13/25 08:59 Last Admin: 04/06/25 10:06 Dose: 100 mls/hr Azithromycin 500 mg/ Sodium (Chloride) 250 mls @ 250 mls/hr IV QDAY [facility] Stop: 04/12/25 08:59 Last Admin: 04/06/25 10:06 Dose: 250 mls/hr Insulin Degludec (Insulin Degludec 5 Unit/0.05 Ml (Per 5 Units)) 5 unit SC HS [facility] Stop: 05/06/25 20:59 Insulin Human Lispro (Insulin Lispro (Admelog) 1 Unit/0.01 Ml Unit) 0 unit SC Q4H [facility]; Protocol Stop: 05/06/25 10:29 Labetalol HCl (Labetalol Inj 5 Mg/Ml Vial 20 Ml) 10 mg IVP Q15MIN PRN PRN Reason: Hypertension Stop: 05/05/25 18:00 Last Admin: 04/06/25 10:08 Dose: 10 mg Metoprolol Tartrate (Metoprolol Tartrate 25 Mg Tablet) 25 mg PO BID [facility] Stop: 05/06/25 20:59 Nicotine (Nicotine Patch 14 Mg/24 Hr Patch.Td24) 14 mg TOP QDAY YANA Stop: 05/06/25 08:59 Last Admin: 04/06/25 10:08 Dose: 14 mg Ondansetron HCl (Ondansetron Inj 2 Mg/Ml Inj 2 Ml) 4 mg IVP Q6H PRN; Protocol PRN Reason: NAUSEA OR VOMITING Stop: 05/05/25 12:53 Pantoprazole Sodium (Pantoprazole 40 Mg Tablet) 40 mg PO QDAY YANA Stop: 05/06/25 08:59 Last Admin: 04/06/25 10:07 Dose: 40 mg Polyethylene Glycol (Polyethylene Glycol 17 Gm Packet) 17 gm PO QDAY YANA Stop: 05/06/25 08:59 Last Admin: 04/06/25 10:17 Dose: Not Given Sennosides (Senna/Docusate Sod 1 Tab Tablet) 1 tab PO QDAY PRN; Protocol PRN Reason: CONSTIPATION Stop: 05/06/25 05:08 Sodium Chloride (Sodium Chloride Rt [place] 0.9% 3 Ml Nebu) 3 ml INH PRN PRN PRN Reason: SOLN Stop: 05/05/25 12:53 Discontinued Medications Acetaminophen (Acetaminophen 325 Mg Tablet) 650 mg PO X1 ONE Stop: 04/05/25 10:04 Last Admin: 04/05/25 10:16 Dose: 650 mg Albuterol/Ipratropium (Albuterol/Ipratropium (Duoneb) Rt [place] 3 Ml Nebu) 3 ml INH Q6HRRT PRN PRN Reason: shortness of breath Stop: 05/05/25 18:59 Ceftriaxone Sodium/Dextrose (Rocephin/D5w 1gm Iv Premix) 1 gm in 50 mls @ 100 mls/hr IV STAT STA Stop: 04/05/25 12:32 Last Infusion: 04/05/25 15:32 Dose: Infused Azithromycin 500 mg/ Sodium (Chloride) 250 mls @ 250 mls/hr IV X1 ONE Stop: 04/05/25 14:14 Last Infusion: 04/05/25 15:31 Dose: Infused Insulin Degludec (Insulin Degludec 5 Unit/0.05 Ml (Per 5 Units)) 20 unit SC [facility] Stop: 05/05/25 20:59 Last Admin: 04/05/25 20:58 Dose: 20 unit Insulin Human Lispro (Insulin Lispro (Admelog) 1 Unit/0.01 Ml Unit) 0 unit SC AC [facility]; Protocol Stop: 05/05/25 16:59 Last Admin: 04/06/25 07:56 Dose: 3 unit Insulin Human Regular (Insulin Hum Regular 1 Unit/0.01 Ml (Per Unit)) 10 unit IV X1 ONE; Protocol Stop: 04/06/25 09:52 Last Admin: 04/06/25 10:01 Dose: 10 unit Tuberculin PPD (Tuberculin Ppd Inj 5 Unit/0.1 Ml Dose) 5 unit ID X1 ONE Stop: 04/05/25 21:55 Assessment & Plan Plan 59-year-old female with a history of ESRD (MW, followed by Dr. 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 Flores in [place]), insulin-dependent type 2 diabetes mellitus presented to the hospital on 04/05/2025 for acute onset of left facial droop, dysarthria, left hemiparesis. PPatient has been admitted to the monitor her neurologic symptoms. Nephrology has been consulted for management of her ESRD. #ESRD on hemodialysis. ([facility]) -On admission: BUN :53, Cr:5.1, eGFR:9, K: 3.7. -The patient received hemodialysis on thursday half way -No signs of volume overload on exam. On room air satting well. -CXR (04/05/2025): Mild bibasilar pneumonia, consider aspiration pneumonia -Hemodialysis sessions: Scheduled for tomorrow. Plan: -Monitor renal function -Maintain fluid restriction, avoid nephrotoxic agents when possible, renally dose medications -Strict i and o -Hemodialysis per schedule. Started tomorrow. #Encephalopathy possibly in setting of stroke #Recrudescence vs PRES #HFrEF (s/p ICD, EF 30% in 2021) #History of hypertension #[id number] smoking history, current smoker #? COPD #History of seizures #Insulin-dependent type 2 diabetes #Hyperlipidemia -Management per Primary Hospitalist team Thank you for allowing us to participate in the care of your patient. Assessment and plan discussed with my attending physician Dr. Gricelda Yates (PGY-1)- Internal medicine resident Attending Provider Attestation/Addendum patient currently seen and examined with resident physician Dr. Yates. Note reviewed, agree with findings and recommendations. Patient currently seen in telemetry. Patient with a left BKA. Right IJ dialysis catheter. ESRD patient-under Dr. Nicole Dialysis scheduled for tomorrow. Thank you Whitney for allowing me to participate in the care of Ms. Amaya
--- NOTE | 2025-04-06 10:59 | ESPR_ITS ---
<Statement entered by Ishmael Buckner MD - 04/06/25 14:31> No acute overnight events, however she was noted to have blood sugar of 24 in the morning and was corrected 138 after. Rapid response for blood sugar 318 and was given 10 units of IV regular insulin. Insulin checks were changed to every 4 hours given her labile blood sugars and degludec was changed from 20 to 10. Otherwise, spoke to daughter regarding ICD compatibility with MRI and left to reach out to machine i coremaker to place device to see if it is compatible. Also pending EEG, and afterwards we will follow-up on neurology recommendations. ----- Note reviewed and agree with care plan as documented. Please refer to the note below for further details. Plan discussed with attending physician Dr. Main Buckner MD PGY-2 Internal Medicine Documentation for date of: 04/06/25 Subjective Subjective Interval history: No overnight events. This morning ~0500 pt glucose dropped to 27, was administered D50 w/ normalization of sugar. Pt endorses SOB, headache, chills, fever, weakness, and 7/10 suprapubic pain. Denies chest pain, n/v/d. Overnight telemetry showed sinus. At ~0945 rapid response was called regarding hyperglycemia, please see Event Note today for details. Exam Vital Signs Temp Pulse Resp BP Pulse Ox O2 Del Method O2 Flow Rate 97.0 F 85 16 165/82 H 92 L Nasal Cannula 2 04/06/25 08:00 04/06/25 10:08 04/06/25 08:00 04/06/25 10:08 04/06/25 08:00 04/06/25 08:00 04/06/25 01:00 Narrative Exam General: AOx3, appears mildly distressed/agitated, able to speak full sentences HEENT: NC/AT, mucous membranes moist, bilateral sclera anicteric, prominent b/l cataracts w/ R eyelid droop pt claims is baseline Cardiovascular: regular rate and rhythm, S1/S2 present, no murmurs appreciated Pulmonary: clear to auscultation bilaterally, no rales/rhonchi/wheezes Abdominal: soft, non-tender, non-distended, no rebound/guarding, normal bowel sounds present Musculoskeletal: normal ROM, L BKA Skin: warm and dry, intact, no rashes Neuro: CN II-XII intact, sensation intact b/l extremities,left facial decreased sensation to touch and nasolabial fold flattening. Tongue midline able to move [id number]. Impaired attention. Requires prompting to follow instructions/answer questions. Left BKA. Power in left upper extremity 3/5, power in right upper extremity 4/5, power in right lower extremity 5/5. Objective Labs 04/07/25 05:20 04/07/25 05:20 Labs: Laboratory Results - last 24 hr 04/05/25 04/05/25 04/05/25 10:26 10:58 16:37 WBC 8.2 RBC 4.32 Hgb 13.9 Hct 40.6 MCV 94 MCH 32.2 MCHC 34.2 RDW Std Deviation 44.3 Plt Count 114 L Neut % (Auto) 72 Lymph % (Auto) 17 Gallia % (Auto) 8 Eos % (Auto) 3 Baso % (Auto) 1 Neut # (Auto) 5.9 Lymph # (Auto) 1.4 Gallia # (Auto) 0.6 Eos # (Auto) 0.2 Baso # (Auto) 0.1 Immature Gran # (Auto) 0.03 H Absolute Nucleated RBC 0.00 Immature Gran % 0 Nucleated RBC % 0 PT 10.9 INR 1.0 APTT 27.0 VBG pH VBG pCO2 VBG pO2 VBG O2 Sat (Manjula) VBG Base Excess Sodium 138 139 Potassium 4.7 4.3 Chloride 104 103 Carbon Dioxide 26.2 27.1 Anion Gap 8 9 BUN 60 H 59 H Creatinine 5.0 H* 5.0 H* Estim Creat Clear Calc 11.6 L 12.0 L eGFR 9 L* 9 L* BUN/Creatinine Ratio 12 12 Glucose [address] Glu mg/dL Hemoglobin A1c Calculated Osmolality 295 295 Lactic Acid Uric Acid Calcium 9.7 9.0 Corrected Calcium 9.8 9.2 Phosphorus 4.7 Magnesium 2.2 Total Bilirubin 0.3 AST 24 ALT 16 Alkaline Phosphatase 76 Troponin I 0.128 H* 0.124 H* B-Natriuretic Peptide 1480 H* Total Protein 5.9 Albumin 3.9 3.7 Globulin 2.0 L Albumin/Globulin Ratio 2.0 Triglycerides Cholesterol LDL Cholesterol, Calc HDL Cholesterol Cholesterol/HDL Ratio 25-OH Vitamin D Total Beta-Hydroxybutyrate/Acetoacetate TSH PTH Intact Ur Collection Type Catheter Urine Color Lt-Yellow Urine Clarity Clear Urine pH 6.0 Ur Specific Pierre 1.010 Urine Protein 2+ A Urine Glucose (UA) 2+ A Urine Ketones Negative Urine Blood 1+ A Urine Nitrite Negative Urine Bilirubin Negative Urine Urobilinogen (Auto) Negative Ur Leukocyte Esterase Positive Urine RBC 3 Urine WBC 39 H Ur Squamous Epith Cells 2 Urine Bacteria None Ur Culture Indicated? Yes Urine Opiates Screen Negative Urine Fentanyl Screen Negative Ur Barbiturates Screen Negative U Amphetamin/Meth Scrn Negative U Benzodiazepines Scrn Negative U Cocaine Metab Screen Negative U Marijuana (THC) Screen Negative Ethyl Alcohol < 3.0 Hepatitis A IgM Ab Non Reactive Hep Bs Antigen Non Reactive Hep B Core IgM Ab Non Reactive Hepatitis C Antibody Non Reactive Influenza A (Rapid) Negative Influenza B (Rapid) Negative 04/06/25 04/06/25 05:00 10:06 WBC 10.1 RBC 4.49 Hgb 14.3 Hct 42.6 MCV 95 MCH 31.8 MCHC 33.6 RDW Std Deviation 44.3 Plt Count 172 D Neut % (Auto) 47 Lymph % (Auto) 39 Gall[place] % (Auto) 8 Eos % (Auto) 4 Baso % (Auto) 1 Neut # (Auto) 4.7 Lymph # (Auto) 3.9 Gall[place] # (Auto) 0.8 Eos # (Auto) 0.4 Baso # (Auto) 0.1 Immature Gran # (Auto) 0.04 H Absolute Nucleated RBC 0.00 Immature Gran % 0 Nucleated RBC % 0 PT INR APTT VBG pH 7.29 L VBG pCO2 50 VBG pO2 57 D VBG O2 Sat (Manjula) 87 L VBG Base Excess -3 Sodium 141 Potassium 3.7 D Chloride 103 Carbon Dioxide 24.7 Anion Gap 13 BUN 53 H Creatinine 5.1 H* Estim Creat Clear Calc 11.8 L eGFR 9 L* BUN/Creatinine Ratio 10 L Glucose 27 L* D Estimated Ave Glu mg/dL 203 H Hemoglobin A1c 8.7 H Calculated Osmolality 291 Lactic Acid 1.9 Uric Acid 8.2 H Calcium 9.0 Corrected Calcium 9.2 Phosphorus 5.5 H Magnesium 2.2 Total Bilirubin 0.2 L AST 27 ALT 16 Alkaline Phosphatase 70 Troponin I B-Natriuretic Peptide Total Protein 5.9 Albumin 3.8 Globulin 2.1 L Albumin/Globulin Ratio 1.8 Triglycerides 119 Cholesterol 181 LDL Cholesterol, Calc 89 HDL Cholesterol 68 H Cholesterol/HDL Ratio 2.7 L 25-OH Vitamin D Total 36.4 Beta-Hydroxybutyrate/Acetoacetate 0.1 TSH 1.72 PTH Intact 151.5 H Ur Collection Type Urine Color Urine Clarity Urine pH Ur Specific Pierre Urine Protein Urine Glucose (UA) Urine Ketones Urine Blood Urine Nitrite Urine Bilirubin Urine Urobilinogen (Auto) Ur Leukocyte Esterase Urine RBC Urine WBC Ur Squamous Epith Cells Urine Bacteria Ur Culture Indicated? Urine Opiates Screen Urine Fentanyl Screen Ur Barbiturates Screen U Amphetamin/Meth Scrn U Benzodiazepines Scrn U Cocaine Metab Screen U Marijuana (THC) Screen Ethyl Alcohol Hepatitis A IgM Ab Hep Bs Antigen Hep B Core IgM Ab Hepatitis C Antibody Influenza A (Rapid) Influenza B (Rapid) ABG Interpretation ABG results: 04/05/25 04/06/25 10:26 10:06 VBG pH 7.32 L 7.29 L VBG pCO2 46 50 VBG pO2 80 H 57 D VBG Base Excess -3 -3 Quality Measures Quality Measures stroke Suspected type of Stroke: Non Acute Last known well (date): 04/05/25 Last known well (time): 11:05 Tenecteplase given: Reason(s) Tenecteplase not given: Stroke severity too mild (non-disabling) (suspected recrudescence, encephalopathy.) not given Rehab services: PT evaluation ordered and Speech Language Pathology eval ordered VTE Prophylaxis: pharmaceutical Antithrombotic by day 2:: not indicated (describe) Statin ordered: <75 y/o high intensity dose Anticoagulation ordered for A-fib or flutter (current or hx): not indicated Assessment & Plan Assessment Current Active Medications: Generic Name Dose Route Start Last Admin Trade Name Choloq PRN Reason Stop Dose Admin Acetaminophen 650 mg 04/05/25 12:54 04/06/25 05:41 Acetaminophen 325 Mg Tablet PO 05/05/25 12:53 650 mg Q6H PRN Administration Fever >101.5 Protocol Albuterol 2.5 mg 04/05/25 12:54 Albuterol Rt 2.5 Mg/0.5 Ml Nebu INH 05/05/25 12:53 Q4H PRN SHORTNESS OF BREATH OR WHEEZE Aspirin 81 mg 04/05/25 13:15 04/06/25 10:07 Aspirin Ec 81 Mg Tabec PO 05/05/25 13:14 81 mg QDAY YANA Administration Atorvastatin Calcium 40 mg 04/05/25 21:00 04/05/25 20:55 Atorvastatin Calcium 10 Mg Tablet PO 05/05/25 20:59 40 mg HS YANA Administration Bumetanide 1 mg 04/05/25 13:15 04/06/25 10:07 Bumetanide Inj 0.25 Mg/Ml Vial 4 Ml IVP 05/05/25 13:14 1 mg BID YANA Administration Dextrose 25 ml 04/05/25 13:01 04/06/25 05:22 Dextrose 50%-Water Inj 50 Ml Syringe IV 05/05/25 13:00 25 ml Q15MIN PRN Administration BG 50-70 responsive npo pt Dextrose 50 ml 04/05/25 13:01 Dextrose 50%-Water Inj 50 Ml Syringe IV 05/05/25 13:00 Q15MIN PRN BG <50 OR BG <70 & pt unresponsive Glucagon 1 mg 04/05/25 13:01 04/06/25 05:39 Glucagon Inj 1 Mg Vial IM 1 mg Q15MIN PRN Administration BG <70, and no IV access Heparin Sodium (Porcine) 5,000 unit 04/05/25 13:00 04/06/25 10:07 Heparin Sod Inj 5000 Unit/Ml Vial SC 04/19/25 12:59 5,000 unit Q12HR YANA Administration Ceftriaxone Sodium/Dextrose 1 gm in 50 mls @ 100 mls/hr 04/06/25 09:00 04/06/25 10:06 Rocephin/D5w 1gm Iv Premix IV 04/13/25 08:59 100 mls/hr QDAY YANA Administration Azithromycin 500 mg/ Sodium 250 mls @ 250 mls/hr 04/06/25 09:00 04/06/25 10:06 Chloride IV 04/12/25 08:59 250 mls/hr QDAY YANA Administration Insulin Degludec 5 unit 04/06/25 21:00 Insulin Degludec 5 Unit/0.05 Ml (Per 5 Units) SC 05/06/25 20:59 HS YANA Insulin Human Lispro 0 unit 04/06/25 10:30 Insulin Lispro (Admelog) 1 Unit/0.01 Ml Unit SC 05/06/25 10:29 Q4H [facility] Protocol Labetalol HCl 10 mg 04/05/25 18:01 04/06/25 10:08 Labetalol Inj 5 Mg/Ml Vial 20 Ml IVP 05/05/25 18:00 10 mg Q15MIN PRN Administration Hypertension Metoprolol Tartrate 25 mg 04/06/25 21:00 Metoprolol Tartrate 25 Mg Tablet PO 05/06/25 20:59 BID YANA Nicotine 14 mg 04/06/25 09:00 04/06/25 10:08 Nicotine Patch 14 Mg/24 Hr Patch.Td24 TOP 05/06/25 08:59 14 mg QDAY YANA Administration Ondansetron HCl 4 mg 04/05/25 12:54 Ondansetron Inj 2 Mg/Ml Inj 2 Ml IVP 05/05/25 12:53 Q6H PRN NAUSEA OR VOMITING Protocol Pantoprazole Sodium 40 mg 04/06/25 09:00 04/06/25 10:07 Pantoprazole 40 Mg Tablet PO 05/06/25 08:59 40 mg QDAY YANA Administration Polyethylene Glycol 17 gm 04/06/25 09:00 04/06/25 10:17 Polyethylene Glycol 17 Gm Packet PO 05/06/25 08:59 Not Given QDAY YANA Sennosides 1 tab 04/06/25 05:09 Senna/Docusate Sod 1 Tab Tablet PO 05/06/25 05:08 QDAY PRN CONSTIPATION Protocol Sodium Chloride 3 ml 04/05/25 12:54 Sodium Chloride Rt [place] 0.9% 3 Ml Nebu INH 05/05/25 12:53 PRN PRN SOLN Plan Cyn Amaya is a 59-year-old female with a history of ESRD ([facility], followed by Dr. 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 Flores in [place]), insulin-dependent type 2 diabetes mellitus who was admitted for stroke work-up. #Encephalopathy possibly in setting of stroke #Recrudescence vs PRES Per neurology consult, ddx return/exacerbation of deficits d/t previous stroke vs PRES syndrome Patient presented with reemergence of prior stroke symptoms of left facial droop, dysarthria and left hemiparesis along with 1 week history of headache, abdominal pain and nausea along with fluctuating blood pressure. Last well-known time 11:00, initial response time 11:12 with no speaking, straining and left facial droop. NIHSS score 6. Patient was not deemed candidate for thrombolytic because of suspected recrudescence, encephalopathy. CT brain and head and neck CTA were negative for acute changes, however pt's asymmetrical forehead wrinkling and partial left eye lid closure concerning for focal deficit/stroke. Previous MRI from 2019 showed acute small infarcts in right parietal lobe. Passed nurse bedside swallow 04/05/25. - Neuro consulted, appreciated. Pending MRI Brain + EEG - Cont home ASA and Statin - PT/Speech Therapy - Neurochecks Q4 - Aspiration and Seizure precautions - Trend CBC/CMP in AM #HFrEF (s/p ICD, EF 30% in 2021) Hemodynamically stable, unlikely to be in exacerbation this inpatient stay. Follows Dr. Flores in [place]. Echo 04/05/25 showed LVEF 30-25%. NYHA Class most likely III. - Bumex 1 g IV daily - Consider GDMT initiation as tolerated. #History of hypertension Chronic, controlled. Pt became hypotensive after taking 2x daily Metoprolol Tartrate 25mg, however following admission is hypertensive in 150s-170s SBP. - Cont home Metoprolol as above - Labetalol 10 mg IV prn #[id number] smoking history, current smoker #? COPD - As needed DuoNeb - Nicotine patch #History of seizures Pt does not have recent hx of seizure, unlikely that current hospital stay is related to epileptic etiology. Pt is not medicated for seizures. - Monitor - Neurology following #Insulin-dependent type 2 diabetes Chronic, latest A1c 8.7 this admission. Per pt takes 40 units Lantis at home in the morning. - Degludec 20 units HS - SSI - Accuchecks #Hyperlipidemia Latest lipid panel WNL. - Cont home Atorvastatin #ESRD on dialysis M/W/F Pt creatinine this admission ~5.0. Pt completed 2 hours of dialysis on morning of admission. Per Nephro no dialysis necessary today. - Nephro consulted - CMP in AM - Dialyze as scheduled/per recs Hospital management: Disposition: Pending further Neuro workup (MRI and EEG) Diet: Renal DVT prophylaxis: Heparin SC BID GI prophylaxis: Protonix 40mg PO qD CODE STATUS: full code Attending Provider Attestation/Addendum I attest that I was physically present for the evaluation, physical examination, lab and imaging review of the patient with the residents. I discussed the case with the residents and agree with the findings and plans of care as documented above. Whitney Quach MD
--- NOTE | 2025-04-06 12:15 | PC.NURSE ---
MRI called and said they need the card for the patient's pacemaker. Patient and family said they do not have the card. Per family, It was lost in route to the hospital. Dr. Quach on the floor. Made aware. said he will reach out to Patient's transmission technician, Dr. Flores, to see if they have information on patient's pacemaker.
--- NOTE | 2025-04-06 13:28 | PD.RESEVENT ---
Documentation for date of: 04/06/25 Event Note Event Note: At ~0945 rapid response was called regarding hyperglycemia to 345. Pt was lethargic but answering questions appropriately, in moderate distress without respiratory or hemodynamic compromise. Pt was administered 10 units insulin with normalization of sugars and improvement of symptoms. CMP, Lactic Acid, and BHB were ordered to monitor recovery status. Plan discussed with attending physician Dr. Main Mendoza, Medical Student DEYANIRA
--- NOTE | 2025-04-06 15:42 | PD.RESPRO ---
Documentation for date of: 04/06/25 Subjective Subjective Interval history: Patient was seen and examined at the bedside. Rapid response was called at 9:45 today because of hyperglycemia episode. Patient was lethargic but answering question appropriately in moderate distress without respiratory or hemodynamic compromise. Patient was given 10 units of insulin subsequently normalization of glycemic control and improvement of symptoms. Echo showed severely reduced LV function. EF 30 to 35%. Diastolic dysfunction cannot be graded because of the pacemaker wire. Moderately dilated RV and mild RV systolic function. Moderate to severe PAH. Moderately increased LA volume. similar to previous echo. Currently awaiting on ICD compatibility with MRI and will follow-up with EEG. Exam Vital Signs Temp Pulse Resp BP Pulse Ox O2 Del Method O2 Flow Rate 97.3 F 70 20 141/84 H 95 Room Air 2 04/06/25 12:00 04/06/25 12:05 04/06/25 12:05 04/06/25 12:00 04/06/25 12:05 04/06/25 12:00 04/06/25 12:05 Narrative Exam GENERAL APPEARANCE: AxOx4, elderly female in no acute distress. HEENT: NC, AT. MMM. EOMI, clear conjunctiva, oropharynx clear. Cataract in both eyes. Left eye lid partially closed. NECK: Supple without lymphadenopathy. No stiffness or restricted ROM.Right IJ catheter in place. HEART: Regular rate and regular rhythm, normal S1/S2, no m/r/g LUNGS: CTAB, moving air well. No crackles or wheezes are heard. ABDOMEN: Soft, nontender, nondistended with good bowel sounds heard. BACK: No CVAT, no obvious deformity. EXTREMITIES: Without cyanosis, clubbing or edema. Left BKA. NEUROLOGICAL: Grossly nonfocal. Alert and oriented, x 3. Left facial decreased sensation to touch and nasolabial fold flattening. Tongue midline able to move [id number]. Impaired attention. Requires prompting to follow instructions/answer questions. Left BKA. Power in left upper extremity 3/5, power in right upper extremity 4/5, power in right lower extremity 5/5. Skin: Warm and dry without any rash. Psych: Sometimes delayed responses however conversational Objective Labs 04/07/25 05:20 04/07/25 05:20 Labs: Laboratory Results - last 24 hr 04/05/25 04/05/25 04/06/25 10:58 16:37 05:00 WBC 10.1 RBC 4.49 Hgb 14.3 Hct 42.6 MCV 95 MCH 31.8 MCHC 33.6 RDW Std Deviation 44.3 Plt Count 172 D Neut % (Auto) 47 Lymph % (Auto) 39 [place] % (Auto) 8 Eos % (Auto) 4 Baso % (Auto) 1 Neut # (Auto) 4.7 Lymph # (Auto) 3.9 [place] # (Auto) 0.8 Eos # (Auto) 0.4 Baso # (Auto) 0.1 Immature Gran # (Auto) 0.04 H Absolute Nucleated RBC 0.00 Immature Gran % 0 Nucleated RBC % 0 VBG pH VBG pCO2 VBG pO2 VBG O2 Sat ([place]) VBG Base Excess Sodium 139 141 Potassium 4.3 3.7 D Chloride 103 103 Carbon Dioxide 27.1 24.7 Anion Gap 9 13 BUN 59 H 53 H Creatinine 5.0 H* 5.1 H* Estim Creat Clear Calc 12.0 L 11.8 L eGFR 9 L* 9 L* BUN/Creatinine Ratio 12 10 L Glucose 116 H 27 L* D Estimated Ave Glu mg/dL 203 H Hemoglobin A1c 8.7 H Calculated Osmolality 295 291 Lactic Acid Uric Acid 8.2 H Calcium 9.0 9.0 Corrected Calcium 9.2 9.2 Phosphorus 4.7 5.5 H Magnesium 2.2 Total Bilirubin 0.2 L AST 27 ALT 16 Alkaline Phosphatase 70 Troponin I 0.124 H* Total Protein 5.9 Albumin 3.7 3.8 Globulin 2.1 L Albumin/Globulin Ratio 1.8 Triglycerides 119 Cholesterol 181 LDL Cholesterol, Calc 89 HDL Cholesterol 68 H Cholesterol/HDL Ratio 2.7 L 25-OH Vitamin D Total 36.4 Beta-Hydroxybutyrate/Acetoacetate TSH 1.72 PTH Intact 151.5 H Urine Opiates Screen Negative Urine Fentanyl Screen Negative Ur Barbiturates Screen Negative U Amphetamin/Meth Scrn Negative U Benzodiazepines Scrn Negative U Cocaine Metab Screen Negative U Marijuana (THC) Screen Negative Hepatitis A IgM Ab Non Reactive Hep Bs Antigen Non Reactive Hep B Core IgM Ab Non Reactive Hepatitis C Antibody Non Reactive 04/06/25 10:06 WBC RBC Hgb Hct MCV MCH MCHC RDW Std Deviation Plt Count Neut % (Auto) Lymph % (Auto) [place] % (Auto) Eos % (Auto) Baso % (Auto) Neut # (Auto) Lymph # (Auto) [place] # (Auto) Eos # (Auto) Baso # (Auto) Immature Gran # (Auto) Absolute Nucleated RBC Immature Gran % Nucleated RBC % VBG pH 7.29 L VBG pCO2 50 VBG pO2 57 D VBG O2 Sat ([place]) 87 L VBG Base Excess -3 Sodium Potassium Chloride Carbon Dioxide Anion Gap BUN Creatinine Estim Creat Clear Calc eGFR BUN/Creatinine Ratio Glucose Estimated Ave Glu mg/dL Hemoglobin A1c Calculated Osmolality Lactic Acid 1.9 Uric Acid Calcium Corrected Calcium Phosphorus Magnesium Total Bilirubin AST ALT Alkaline Phosphatase Troponin I Total Protein Albumin Globulin Albumin/Globulin Ratio Triglycerides Cholesterol LDL Cholesterol, Calc HDL Cholesterol Cholesterol/HDL Ratio 25-OH Vitamin D Total Beta-Hydroxybutyrate/Acetoacetate 0.1 TSH PTH Intact Urine Opiates Screen Urine Fentanyl Screen Ur Barbiturates Screen U Amphetamin/Meth Scrn U Benzodiazepines Scrn U Cocaine Metab Screen U Marijuana (THC) Screen Hepatitis A IgM Ab Hep Bs Antigen Hep B Core IgM Ab Hepatitis C Antibody ABG Interpretation ABG results: 04/05/25 04/06/25 10:26 10:06 VBG pH 7.32 L 7.29 L VBG pCO2 46 50 VBG pO2 80 H 57 D VBG Base Excess -3 -3 Quality Measures Quality Measures stroke Suspected type of Stroke: Non Acute Last known well (date): 04/05/25 Last known well (time): 11:05 Tenecteplase given: Reason(s) Tenecteplase not given: Stroke severity too mild (non-disabling) (suspected recrudescence, encephalopathy.) not given Rehab services: PT evaluation ordered VTE Prophylaxis: pharmaceutical (Heparin sc ) Antithrombotic by day 2:: not indicated (describe) Statin ordered: <75 y/o high intensity dose Anticoagulation ordered for A-fib or flutter (current or hx): not indicated Assessment & Plan Assessment Current Active Medications: Generic Name Dose Route Start Last Admin Trade Name Freq PRN Reason Stop Dose Admin Acetaminophen 650 mg 04/05/25 12:54 04/06/25 05:41 Acetaminophen 325 Mg Tablet PO 05/05/25 12:53 650 mg Q6H PRN Administration Fever >101.5 Protocol Albuterol 2.5 mg 04/05/25 12:54 Albuterol Rt 2.5 Mg/0.5 Ml Nebu INH 05/05/25 12:53 Q4H PRN SHORTNESS OF BREATH OR WHEEZE Aspirin 81 mg 04/05/25 13:15 04/06/25 10:07 Aspirin Ec 81 Mg Tabec PO 05/05/25 13:14 81 mg QDAY YANA Administration Atorvastatin Calcium 40 mg 04/05/25 21:00 04/05/25 20:55 Atorvastatin Calcium 10 Mg Tablet PO 05/05/25 20:59 40 mg HS YANA Administration Bumetanide 1 mg 04/05/25 13:15 04/06/25 10:07 Bumetanide Inj 0.25 Mg/Ml Vial 4 Ml IVP 05/05/25 13:14 1 mg BID YANA Administration Dextrose 25 ml 04/05/25 13:01 04/06/25 05:22 Dextrose 50%-Water Inj 50 Ml Syringe IV 05/05/25 13:00 25 ml Q15MIN PRN Administration BG 50-70 responsive npo pt Dextrose 50 ml 04/05/25 13:01 Dextrose 50%-Water Inj 50 Ml Syringe IV 05/05/25 13:00 Q15MIN PRN BG <50 OR BG <70 & pt unresponsive Glucagon 1 mg 04/05/25 13:01 04/06/25 05:39 Glucagon Inj 1 Mg Vial IM 1 mg Q15MIN PRN Administration BG <70, and no IV access Heparin Sodium (Porcine) 5,000 unit 04/05/25 13:00 04/06/25 10:07 Heparin Sod Inj 5000 Unit/Ml Vial SC 04/19/25 12:59 5,000 unit Q12HR YANA Administration Ceftriaxone Sodium/Dextrose 1 gm in 50 mls @ 100 mls/hr 04/06/25 09:00 04/06/25 10:06 Rocephin/D5w 1gm Iv Premix IV 04/13/25 08:59 100 mls/hr QDAY YANA Administration Azithromycin 500 mg/ Sodium 250 mls @ 250 mls/hr 04/06/25 09:00 04/06/25 10:06 Chloride IV 04/12/25 08:59 250 mls/hr QDAY YANA Administration Insulin Degludec 10 unit 04/06/25 21:00 Insulin Degludec 5 Unit/0.05 Ml (Per 5 Units) SC 05/06/25 20:59 HS YANA Insulin Human Lispro 0 unit 04/06/25 12:15 04/06/25 12:26 Insulin Lispro (Admelog) 1 Unit/0.01 Ml Unit SC 05/06/25 10:29 2 unit Q4HR YANA Administration Protocol Labetalol HCl 10 mg 04/05/25 18:01 04/06/25 10:08 Labetalol Inj 5 Mg/Ml Vial 20 Ml IVP 05/05/25 18:00 10 mg Q15MIN PRN Administration Hypertension Metoprolol Tartrate 25 mg 04/06/25 21:00 Metoprolol Tartrate 25 Mg Tablet PO 05/06/25 20:59 BID YANA Nicotine 14 mg 04/06/25 09:00 04/06/25 10:08 Nicotine Patch 14 Mg/24 Hr Patch.Td24 TOP 05/06/25 08:59 14 mg QDAY YANA Administration Ondansetron HCl 4 mg 04/05/25 12:54 Ondansetron Inj 2 Mg/Ml Inj 2 Ml IVP 05/05/25 12:53 Q6H PRN NAUSEA OR VOMITING Protocol Pantoprazole Sodium 40 mg 04/06/25 09:00 04/06/25 10:07 Pantoprazole 40 Mg Tablet PO 05/06/25 08:59 40 mg QDAY YANA Administration Polyethylene Glycol 17 gm 04/06/25 09:00 04/06/25 10:17 Polyethylene Glycol 17 Gm Packet PO 05/06/25 08:59 Not Given QDAY YANA Sennosides 1 tab 04/06/25 05:09 Senna/Docusate Sod 1 Tab Tablet PO 05/06/25 05:08 QDAY PRN CONSTIPATION Protocol Sodium Chloride 3 ml 04/05/25 12:54 Sodium Chloride Rt [place] 0.9% 3 Ml Nebu INH 05/05/25 12:53 PRN PRN SOLN Plan Patient presented with reemergence of prior stroke symptoms of left facial droop, dysarthria and left hemiparesis along with 1 week history of headache, abdominal pain and nausea along with fluctuating blood pressure from dialysis unit. Admitted for possible stroke workup. #Stroke workup DDx: Recrudence versus press syndrome Patient presented with reemergence of prior stroke symptoms of left facial droop, dysarthria and left hemiparesis along with 1 week history of headache, abdominal pain and nausea along with fluctuating blood pressure. Last well-known time 11:00, initial response time 11:12 with no speaking, straining and left facial droop. NIHSS score 6. Patient was not deemed candidate for thrombolytic because of suspected recrudescence, encephalopathy. CT brain and head and neck CTA were negative for acute changes. Previous MRI from 2019 showed acute small infarcts in right parietal lobe. Echo showed severely reduced LV function. EF 30 to 35%. Diastolic dysfunction cannot be graded because of the pacemaker wire. Moderately dilated RV and mild RV systolic function. Moderate to severe PAH. Moderately increased LA volume. A1C 8.7 Plan: Awaiting ICD compatibility with MRI and following with EEG Continue aspirin and statin Physical therapy/speech therapy Neurochecks Q4 hourly Aspiration precautions Seizure precautions #HFrEF EF 30 to 35% with moderate PAH per echo #History of hypertension #History of seizures #Insulin-dependent type 2 diabetes, uncontrolled #NSTEMI type II likely supply/demand ischemia #Hyperlipidemia #ESRD on dialysis M/W/F Rest of management as per primary care team. Plan of care discussed with neurologist, Dr Nacho Shipley MD, PGY 3 Attending Provider Attestation/Addendum I personally have seen and examined the patient at the bedside and I agreed with resident's findings, assessment and plan of care. Patient presenting symptoms are most likely related to metabolic/hypertensive urgency. Will continue to monitor her closely and get the MRI brain tomorrow. Will follow-up with the results as it becomes available.
--- NOTE | 2025-04-06 16:13 | PC.NURSE ---
Pt called on nurses station saying she did not feel good. Went in to check on patient. Patient was feeling week. Blood sugar check was 42. Dr. Buckner on the floor. Brought Dr. Buckner to bedside and called Charge nurse. Called rapid response.
--- NOTE | 2025-04-06 16:45 | PC.PT ---
PT eval only. Patient is at her PLOF/Baseline as she is xI with transfers in and out of a wheelchair. Patient is safe to continue using the molly steady with RN support to use the bathroom. RN made aware.
--- NOTE | 2025-04-06 18:05 | PC.LAC ---
17:06 blood sugar was 79. Pt has two orders of lispro due. Did not administer. Called Dr. Quach and made aware.
[2025-04-06] MEDS: ATORVASTATIN CALCIUM 10 MG TABLET 40 MG PO (20:35)
[2025-04-06] MEDS: METOPROLOL TARTRATE 25 MG TABLET PO (20:39)
--- NOTE | 2025-04-06 20:40 | PD.RESEVENT ---
Documentation for date of: 04/06/25 Event Note Event Note: Rapid response called at 4 PM for blood sugar 42 and patient endorsing feeling lethargic and overall unwell. She was given crackers and juice and blood sugars eventually corrected to 126. Spoke to endocrinology over the phone and recommended every 3 hour blood sugar checks, starting 6 units degludec, and 3 units lsipro TIDWM to closer evaluate what patient's response is to insulin and prevent further hypoglycemic/hyperglycemic events. ----- Plan discussed with attending physician Dr. Main Buckner MD PGY-2 Internal Medicine
[2025-04-07] VITALS (30 sets, daily range): BP systolic 125–195; BP diastolic 65–119; PULSE 71–99; RESP 16–22; TEMP 35.8–36.6; O2SAT 84–100; BMI 30.7; BMI 30.4
--- NOTE | 2025-04-07 | XR_ITS ---
Examinations: MRI Brain without intravenous contrast. Date and time of exam: April 07, 2025, 1547 hrs. Stroke alert April 05, 2025, onset focal neurologic deficit including left-sided body weakness, history acute infarcts on MRI April 26, 2020 Technique: Multiple axial and sagittal images of the brain have been obtained MRA brain carotid images without contrast obtained, including 3-D postprocessing, vascular maximum intensity projection images Findings: [place] is not enlarged. The optic chiasm and infundibular stalk are not remarkable. Prepontine and interpeduncular cisterns are not enlarged. No localized enlargement of the medulla or naye. Fourth ventricle and cerebellar tonsils normal in position. Subacute hemorrhage is not seen. Fourth ventricle is midline. Mass in the cerebellopontine angle region is not evident. 7th and 8th nerve complexes exhibits symmetry. Globes are symmetrical with no retro-orbital mass. Increased white matter signal prominent, old infarcts in the occipital lobes Diffusion-weighted images demonstrate no focus of restricted diffusion Mass-effect upon the ventricular system is not identified. Impression: Negative for acute hemorrhage mass effect or midline shift No acute infarct Prominent chronic microvascular white matter change including old infarcts in the occipital lobes
--- NOTE | 2025-04-07 01:05 | RESP.EEG ---
At 1845 04/06/25, Pt refused EEG again. made aware.
--- NOTE | 2025-04-07 01:08 | RESP.EEG ---
DR TAYLOR MADE AWARE THAT PT HAS REFUSED EEG X2 DAYS NOW. DR TAYLOR STATES SHE WILL LET AM TEAM KNOW.
[2025-04-07 05:54] LABS: Basophils # (Auto) 0.0 Thou/mm3 (0.0-0.2); Basophils % (Auto) 1 % (0-2.5); Eosinophils # (Auto) 0.3 Thou/mm3 (0.0-0.5); Eosinophils % (Auto) 5 % (0-10); Hematocrit 35.8 % (36.0-46.0); Hemoglobin 12.0 g/dL (12.0-16.0); Immature Granulocytes Auto 0.03 Thou/mm3 (0.00-0.00); Lymphocytes # (Auto) 1.0 Thou/mm3 (1.0-4.8); Lymphocytes % (Auto) 19 % (10-50); Mean Corpuscular HGB Conc 33.5 g/dl (31.0-37.0); Mean Corpuscular Hemoglobin 31.9 pg (25.0-35.0); Mean Corpuscular Volume 95 fL (80-100); Monocytes # (Auto) 0.6 Thou/mm3 (0.0-0.8); Monocytes % (Auto) 11 % (0-12); Neutrophils # (Auto) 3.4 Thou/mm3 (1.8-7.7); Neutrophils % (Auto) 64 % (37-80); Nucleated Red Blood Cell # 0.00 Thou/mm3 (0.00-0.00); Nucleated Red Blood Cell % 0 /100 WBC (0); Platelet Count 109 Thou/mm3 (140-440); RDW Standard Deviation 44.8 fL (36.4-46.3); Red Blood Count 3.76 Miln/mm3 (4.00-5.20); White Blood Count 5.3 Thou/mm3 (3.6-11.0)
[2025-04-07] MEDS: ACETAMINOPHEN 325 MG TABLET 650 MG PO ×2 (06:29→14:39)
[2025-04-07 06:47] LABS: Alanine Aminotransferase 14 U/L (10-49); Albumin, Serum 3.3 gm/dL (3.4-4.8); Albumin/Globulin Ratio 1.8 (1.2-2.2); Alkaline Phosphatase 75 U/L (46-116); Anion Gap 12 (7-16); Aspartate Amino Transferase 23 U/L (0-34); BUN/Creatinine Ratio 11 Ratio (12-20); Bilirubin,Total 0.2 mg/dL (0.3-1.2); Blood Urea Nitrogen 76 mg/dL (9-23); Calcium 8.8 mg/dL (8.3-10.6); Calcium (Corrected) 9.4 mg/dL (8.5-10.1); Carbon Dioxide 24.8 mMol/L (20.0-31.0); Chloride 99 mMol/L (98-107); Creatinine (Component) 7.2 mg/dL (0.6-1.3); Estimated Creatinine Clearance 8.4 mL/min (>60); Globulin 1.8 gm/dL (2.3-3.5); Glucose 242 mg/dL (74-106); Osmolality,Calculated 302 (275-295); Potassium 5.0 mMol/L (3.4-5.1); Sodium 136 mMol/L (136-145); Total Protein 5.1 gm/dL (5.7-8.2); eGFR 6 See Note
--- NOTE | 2025-04-07 07:22 | PC.NURSE ---
Pt is restless and states she wants to leave. In report the night nurse mentioned patient wanted to leave AMA. However, was educated and encouraged to stay.
[2025-04-07] MEDS: LABETALOL INJ 5 MG/ML VIAL 20 ML 10 MG IVP ×2 (07:30→18:09)
--- NOTE | 2025-04-07 07:40 | ESPR_ITS ---
Documentation for date of: 04/07/25 Subjective Subjective Interval history: Overnight no events. Seen and examined during dialysis and tolerating well. This morning pt reports developing nausea/vomiting, abdominal pain. Otherwise denies headache, chest pain, fever, chills, diarrhea/constipation. Device confirmed to be compatible with MRI and planned to obtain imaging in afternoon. Will follow- up with neurology afterwards. Of note, patient denying EEG. Exam Vital Signs Temp Pulse Resp BP Pulse Ox O2 Del Method O2 Flow Rate 97.6 F 79 18 141/93 H 94 L Nasal Cannula 5 04/07/25 12:00 04/07/25 12:43 04/07/25 12:00 04/07/25 12:43 04/07/25 12:00 04/07/25 12:00 04/07/25 12:00 Narrative Exam General: AOx3, appears mildly distressed/agitated, able to speak full sentences HEENT: NC/AT, mucous membranes moist, bilateral sclera anicteric, prominent b/l cataracts w/ R eyelid droop pt claims is baseline Cardiovascular: regular rate and rhythm, S1/S2 present, no murmurs appreciated Pulmonary: clear to auscultation bilaterally, no rales/rhonchi/wheezes Abdominal: soft, non-tender, non-distended, no rebound/guarding, normal bowel sounds present Musculoskeletal: normal ROM, L BKA Skin: warm and dry, intact, no rashes Neuro: CN II-XII intact, sensation intact b/l extremities,left facial decreased sensation to touch and nasolabial fold flattening. Tongue midline able to move [id number]. Impaired attention. Requires prompting to follow instructions/answer questions. Left BKA. Power in left upper extremity 3/5, power in right upper extremity 4/5, power in right lower extremity 5/5. Objective Labs 04/07/25 05:20 04/07/25 05:20 Labs: Laboratory Results - last 24 hr 04/07/25 05:20 WBC 5.3 D RBC 3.76 L Hgb 12.0 D Hct 35.8 L MCV 95 MCH 31.9 MCHC 33.5 RDW Std Deviation 44.8 Plt Count 109 L D Neut % (Auto) 64 Lymph % (Auto) 19 [place] % (Auto) 11 Eos % (Auto) 5 Baso % (Auto) 1 Neut # (Auto) 3.4 Lymph # (Auto) 1.0 [place] # (Auto) 0.6 Eos # (Auto) 0.3 Baso # (Auto) 0.0 Immature Gran # (Auto) 0.03 H Absolute Nucleated RBC 0.00 Immature Gran % 1 H Nucleated RBC % 0 Sodium 136 Potassium 5.0 D Chloride 99 Carbon Dioxide 24.8 Anion Gap 12 BUN 76 H Creatinine 7.2 H* D Estim Creat Clear Calc 8.4 L eGFR 6 L* BUN/Creatinine Ratio 11 L Glucose 242 H D Calculated Osmolality 302 H Calcium 8.8 Corrected Calcium 9.4 Total Bilirubin 0.2 L AST 23 ALT 14 Alkaline Phosphatase 75 Total Protein 5.1 L Albumin 3.3 L D Globulin 1.8 L Albumin/Globulin Ratio 1.8 ABG Interpretation ABG results: 04/05/25 04/06/25 10:26 10:06 VBG pH 7.32 L 7.29 L VBG pCO2 46 50 VBG pO2 80 H 57 D VBG Base Excess -3 -3 Quality Measures Quality Measures VTE prophylaxis Assessment & Plan Assessment Current Active Medications: Generic Name Dose Route Start Last Admin Trade Name Freq PRN Reason Stop Dose Admin Acetaminophen 650 mg 04/05/25 12:54 04/07/25 06:29 Acetaminophen 325 Mg Tablet PO 05/05/25 12:53 650 mg Q6H PRN Administration Fever >101.5 Protocol Albuterol 2.5 mg 04/05/25 12:54 Albuterol Rt 2.5 Mg/0.5 Ml Nebu INH 05/05/25 12:53 Q4H PRN SHORTNESS OF BREATH OR WHEEZE Aspirin 81 mg 04/05/25 13:15 04/07/25 12:42 Aspirin Ec 81 Mg Tabec PO 05/05/25 13:14 81 mg QDAY YANA Administration Atorvastatin Calcium 40 mg 04/05/25 21:00 04/06/25 20:35 Atorvastatin Calcium 10 Mg Tablet PO 05/05/25 20:59 40 mg HS YANA Administration Bumetanide 1 mg 04/05/25 13:15 04/07/25 12:43 Bumetanide Inj 0.25 Mg/Ml Vial 4 Ml IVP 05/05/25 13:14 1 mg BID YANA Administration Dextrose 25 ml 04/05/25 13:01 04/06/25 05:22 Dextrose 50%-Water Inj 50 Ml Syringe IV 05/05/25 13:00 25 ml Q15MIN PRN Administration BG 50-70 responsive npo pt Dextrose 50 ml 04/05/25 13:01 Dextrose 50%-Water Inj 50 Ml Syringe IV 05/05/25 13:00 Q15MIN PRN BG <50 OR BG <70 & pt unresponsive Glucagon 1 mg 04/05/25 13:01 04/06/25 05:39 Glucagon Inj 1 Mg Vial IM 1 mg Q15MIN PRN Administration BG <70, and no IV access Heparin Sodium (Porcine) 5,000 unit 04/05/25 13:00 04/07/25 12:42 Heparin Sod Inj 5000 Unit/Ml Vial SC 04/19/25 12:59 5,000 unit Q12HR YANA Administration Ceftriaxone Sodium/Dextrose 1 gm in 50 mls @ 100 mls/hr 04/06/25 09:00 04/07/25 12:43 Rocephin/D5w 1gm Iv Premix IV 04/13/25 08:59 100 mls/hr QDAY YANA Administration Azithromycin 500 mg/ Sodium 250 mls @ 250 mls/hr 04/06/25 09:00 04/07/25 12:42 Chloride IV 04/12/25 08:59 250 mls/hr QDAY YANA Administration Insulin Degludec 6 unit 04/07/25 08:00 04/07/25 13:12 Insulin Degludec 5 Unit/0.05 Ml (Per 5 Units) MI 05/07/25 07:59 Not Given DAILY [facility] Insulin Human Lispro 3 unit 04/06/25 17:30 04/07/25 13:10 Insulin Lispro (Admelog) 1 Unit/0.01 Ml Unit SC 05/06/25 17:29 3 unit TIDWM YANA Administration Insulin Human Lispro 0 unit 04/06/25 17:00 04/07/25 12:48 Insulin Lispro (Admelog) 1 Unit/0.01 Ml Unit SC 05/06/25 16:59 1 unit AC YANA Administration Protocol Labetalol HCl 10 mg 04/05/25 18:01 04/07/25 07:30 Labetalol Inj 5 Mg/Ml Vial 20 Ml IVP 05/05/25 18:00 10 mg Q15MIN PRN Administration Hypertension Metoprolol Tartrate 25 mg 04/06/25 21:00 04/07/25 12:41 Metoprolol Tartrate 25 Mg Tablet PO 05/06/25 20:59 25 mg BID YANA Administration Nicotine 14 mg 04/06/25 09:00 04/07/25 12:44 Nicotine Patch 14 Mg/24 Hr Patch.Td24 TOP 05/06/25 08:59 14 mg QDAY YANA Administration Ondansetron HCl 4 mg 04/05/25 12:54 Ondansetron Inj 2 Mg/Ml Inj 2 Ml IVP 05/05/25 12:53 Q6H PRN NAUSEA OR VOMITING Protocol Pantoprazole Sodium 40 mg 04/06/25 09:00 04/07/25 12:42 Pantoprazole 40 Mg Tablet PO 05/06/25 08:59 40 mg QDAY YANA Administration Polyethylene Glycol 17 gm 04/06/25 09:00 04/07/25 12:45 Polyethylene Glycol 17 Gm Packet PO 05/06/25 08:59 Not Given QDAY YANA Sennosides 1 tab 04/06/25 05:09 Senna/Docusate Sod 1 Tab Tablet PO 05/06/25 05:08 QDAY PRN CONSTIPATION Protocol Sodium Chloride 3 ml 04/05/25 12:54 Sodium Chloride Rt [place] 0.9% 3 Ml Nebu INH 05/05/25 12:53 PRN PRN SOLN Plan Cyn Amaya is a 59-year-old female with past medical history of ESRD ([facility], followed by Dr. 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 Flores in [place]), insulin-dependent type 2 diabetes mellitus who came to the ED w/ headache and neurological deficits. #Encephalopathy possibly in setting of stroke #Recrudescence vs PRES Per neurology consult, ddx return/exacerbation of deficits d/t previous stroke vs PRES syndrome Patient presented with reemergence of prior stroke symptoms of left facial droop, dysarthria and left hemiparesis along with 1 week history of headache, abdominal pain and nausea along with fluctuating blood pressure. Last well-known time 11:00, initial response time 11:12 with no speaking, straining and left facial droop. NIHSS score 6. Patient was not deemed candidate for thrombolytic because of suspected recrudescence, encephalopathy. CT brain and head and neck CTA were negative for acute changes, however pt's asymmetrical forehead wrinkling and partial left eye lid closure concerning for focal deficit/stroke. Previous MRI from 2019 showed acute small infarcts in right parietal lobe. Passed nurse bedside swallow 04/05/25. - Neuro consulted, appreciated. Pt refused EEG, MRI Brain scheduled this afternoon - Cont home ASA and Statin - PT/Speech Therapy - Neurochecks Q4 - Aspiration and Seizure precautions - Trend CBC/CMP in AM #ESRD on dialysis M/W/F Pt creatinine this admission ~5.0. Per pt there was a miscommunication, she did not receive dialysis on day of admission, will receive dialysis as scheduled today. - Nephro consulted, apprecated. - CMP in AM - Dialyze as scheduled/per recs #HFrEF (s/p ICD, EF 30% in 2021) Hemodynamically stable, unlikely to be in exacerbation this inpatient stay. Follows Dr. Flores in [place]. Echo 04/05/25 showed LVEF 30-25%. NYHA Class most likely III. - Bumex 1 g IV daily - Consider GDMT initiation as tolerated. #History of hypertension Chronic, controlled. Pt became hypotensive after taking 2x daily Metoprolol Tartrate 25mg, however following admission is hypertensive in 150s-170s SBP. - Cont home Metoprolol as above - Labetalol 10 mg IV prn #[id number] smoking history, current smoker #? COPD - As needed DuoNeb - Nicotine patch #History of seizures Pt does not have recent hx of seizure, unlikely that current hospital stay is related to epileptic etiology. Pt is not medicated for seizures. - Monitor - Neurology following #Insulin-dependent type 2 diabetes Chronic, latest A1c 8.7 this admission. Per pt takes 40 units L[place] at home in the morning. - Degludec reduced to 5 units given hypoglycemic multiple times this admission, per Endo curbside recs - SSI - Accuchecks #Hyperlipidemia Latest lipid panel WNL. - Cont home Atorvastatin Hospital management: Disposition: pending MRI Diet: renal Lines: PIV DVT prophylaxis: heparin SC CODE STATUS: full code ----- Plan discussed with attending physician Dr. Quach and [facility], Dr. Sita Mendoza Medical student Attending Provider Attestation/Addendum I attest that I was physically present for the evaluation, physical examination, lab and imaging review of the patient with the residents. I discussed the case with the residents and agree with the findings and plans of care as documented above. Whitney Quach MD
[2025-04-07] MEDS: INSULIN DEGLUDEC 5 UNIT/0.05 ML (PER 5 UNITS) 6 UNIT SC (08:10)
--- NOTE | 2025-04-07 08:40 | PD.RESPRO ---
Documentation for date of: 04/07/25 Subjective Subjective Interval history: 59-year-old female with a history of ESRD (MWF, followed by Dr. 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 Flores in [place]), insulin-dependent type 2 diabetes mellitus presented to the hospital on 04/05/2025 for acute onset of left facial droop, dysarthria, left hemiparesis. Patient endorses abdominal pain, and nausea and reported fluctating blood pressure, with 2 incidence of high BP reading. She reported headache earlier in the moring. On arrival, BP was significantly elevated. Telenurology consultation considered recrudescence VS PRES in the context of her BP fluctuations. Patient has been admitted to the monitor her neurologic symptoms. Nephrology has been consulted for management of her ESRD. ED course: In ED, teleneuro was consulted and suspects recrudescence versus PRES syndrome given BP fluctuations. Recommended MRI brain, EEG, and goal BP of <160/90. CT head and CTA head/neck negative for acute changes. Per in-house neurology, recommended to continue aspirin and statin, echo with bubble study. PMHx: ESRD, HTN, T2DM, CHF, CVA w/ L sided deficits Medications: Amlodipine 10mg, Aripiprazole 10mg, Atorvastatin 80mg, Citalopram, Jardiance 25mg, Metoprolol Tartrate 25 BID, Bumex 1mg BID, Gabapentin 300mg FHx: None SHx: 50 pack years cigarettes, no EtOH. Lives w/ daughter in their home. PSHx: Stents placed post-MO Allergies: NKDA 04/06/2025: Labs reviewed and patient examined at the bedside. BUN :53, Cr:5.1, eGFR:9, K: 3.7. Will resume her hemodialysis tomorrow. No need for hemodialysis today. 04/07/2025: Labs reviewed and patient examined at the bedside. BUN :76, Cr:7.2, eGFR:6, K: 5.0. Patient looks agitated and uncomfortable staying at the hospital. Patient will receive hemodialysis today . Exam Vital Signs Temp Pulse Resp BP Pulse Ox O2 Del Method O2 Flow Rate 97.1 F 76 20 152/78 H 95 Nasal Cannula 5 04/07/25 07:47 04/07/25 08:35 04/07/25 07:47 04/07/25 08:35 04/07/25 07:47 04/07/25 07:47 04/07/25 07:47 Narrative Exam General: In distress, and agitated. AAO x3 Eye: normal conjunctiva, no scleral icterus HENT: Normocephalic, atraumatic, hearing intact to conversation at normal volume, moist oral mucosa Neck: Supple, non-tender, no JVD, no lymphadenopathy Lungs: Non-labored respirations, symmetric chest rise, Clear to auscultate bilaterally, No wheezing, rhonchi, crackles Heart: Peripheral pulses intact bilaterally, Regular Rate and Rhythm. Abdomen: Soft, non-tender, non-distended, no palpable masses Musculoskeletal: No cyanosis or edema, No visible joint swelling, left BKA Skin: Skin is warm, dry, no rashes or lesions. Psychiatric: Cooperative, appropriate mood and affect, Awake and alert, not agitated Neuro: Cranial nerves II-XII grossly intact. left facial sensation decreased. Objective Labs 04/07/25 05:20 04/07/25 05:20 Labs: Laboratory Results - last 24 hr 04/06/25 04/07/25 10:06 05:20 WBC 5.3 D RBC 3.76 L Hgb 12.0 D Hct 35.8 L MCV 95 MCH 31.9 MCHC 33.5 RDW Std Deviation 44.8 Plt Count 109 L D Neut % (Auto) 64 Lymph % (Auto) 19 [place] % (Auto) 11 Eos % (Auto) 5 Baso % (Auto) 1 Neut # (Auto) 3.4 Lymph # (Auto) 1.0 Ellis # (Auto) 0.6 Eos # (Auto) 0.3 Baso # (Auto) 0.0 Immature Gran # (Auto) 0.03 H Absolute Nucleated RBC 0.00 Immature Gran % 1 H Nucleated RBC % 0 VBG pH 7.29 L VBG pCO2 50 VBG pO2 57 D VBG O2 Sat (Manjula) 87 L VBG Base Excess -3 Sodium 136 Potassium 5.0 D Chloride 99 Carbon Dioxide 24.8 Anion Gap 12 BUN 76 H Creatinine 7.2 H* D Estim Creat Clear Calc 8.4 L eGFR 6 L* BUN/Creatinine Ratio 11 L Glucose 242 H D Calculated Osmolality 302 H Lactic Acid 1.9 Calcium 8.8 Corrected Calcium 9.4 Total Bilirubin 0.2 L AST 23 ALT 14 Alkaline Phosphatase 75 Total Protein 5.1 L Albumin 3.3 L D Globulin 1.8 L Albumin/Globulin Ratio 1.8 Beta-Hydroxybutyrate/Acetoacetate 0.1 ABG Interpretation ABG results: 04/05/25 04/06/25 10:26 10:06 VBG pH 7.32 L 7.29 L VBG pCO2 46 50 VBG pO2 80 H 57 D VBG Base Excess -3 -3 Quality Measures Quality Measures stroke Suspected type of Stroke: Non Acute Last known well (date): 04/05/25 Last known well (time): 11:05 Tenecteplase given: Reason(s) Tenecteplase not given: Stroke severity too mild (non-disabling) (suspected recrudescence, encephalopathy.) not given Rehab services: PT evaluation ordered VTE Prophylaxis: pharmaceutical Antithrombotic by day 2:: ordered Statin ordered: <75 y/o high intensity dose Anticoagulation ordered for A-fib or flutter (current or hx): ordered Assessment & Plan Assessment Current Active Medications: Generic Name Dose Route Start Last Admin Trade Name Freq PRN Reason Stop Dose Admin Acetaminophen 650 mg 04/05/25 12:54 04/07/25 06:29 Acetaminophen 325 Mg Tablet PO 05/05/25 12:53 650 mg Q6H PRN Administration Fever >101.5 Protocol Albuterol 2.5 mg 04/05/25 12:54 Albuterol Rt 2.5 Mg/0.5 Ml Nebu INH 05/05/25 12:53 Q4H PRN SHORTNESS OF BREATH OR WHEEZE Aspirin 81 mg 04/05/25 13:15 04/06/25 10:07 Aspirin Ec 81 Mg Tabec PO 05/05/25 13:14 81 mg QDAY YANA Administration Atorvastatin Calcium 40 mg 04/05/25 21:00 04/06/25 20:35 Atorvastatin Calcium 10 Mg Tablet PO 05/05/25 20:59 40 mg HS YANA Administration Bumetanide 1 mg 04/05/25 13:15 04/06/25 20:36 Bumetanide Inj 0.25 Mg/Ml Vial 4 Ml IVP 05/05/25 13:14 1 mg BID YANA Administration Dextrose 25 ml 04/05/25 13:01 04/06/25 05:22 Dextrose 50%-Water Inj 50 Ml Syringe IV 05/05/25 13:00 25 ml Q15MIN PRN Administration BG 50-70 responsive npo pt Dextrose 50 ml 04/05/25 13:01 Dextrose 50%-Water Inj 50 Ml Syringe IV 05/05/25 13:00 Q15MIN PRN BG <50 OR BG <70 & pt unresponsive Glucagon 1 mg 04/05/25 13:01 04/06/25 05:39 Glucagon Inj 1 Mg Vial IM 1 mg Q15MIN PRN Administration BG <70, and no IV access Heparin Sodium (Porcine) 5,000 unit 04/05/25 13:00 04/06/25 20:37 Heparin Sod Inj 5000 Unit/Ml Vial SC 04/19/25 12:59 5,000 unit Q12HR YANA Administration Ceftriaxone Sodium/Dextrose 1 gm in 50 mls @ 100 mls/hr 04/06/25 09:00 04/06/25 10:06 Rocephin/D5w 1gm Iv Premix IV 04/13/25 08:59 100 mls/hr QDAY YANA Administration Azithromycin 500 mg/ Sodium 250 mls @ 250 mls/hr 04/06/25 09:00 04/06/25 10:06 Chloride IV 04/12/25 08:59 250 mls/hr QDAY YANA Administration Insulin Degludec 6 unit 04/07/25 08:00 04/07/25 08:10 Insulin Degludec 5 Unit/0.05 Ml (Per 5 Units) SC 05/07/25 07:59 6 unit DAILY YANA Administration Insulin Human Lispro 3 unit 04/06/25 17:30 04/07/25 08:01 Insulin Lispro (Admelog) 1 Unit/0.01 Ml Unit SC 05/06/25 17:29 Not Given TIDWM YANA Insulin Human Lispro 0 unit 04/06/25 17:00 04/07/25 08:01 Insulin Lispro (Admelog) 1 Unit/0.01 Ml Unit SC 05/06/25 16:59 Not Given AC [facility] Protocol Labetalol HCl 10 mg 04/05/25 18:01 04/07/25 07:30 Labetalol Inj 5 Mg/Ml Vial 20 Ml IVP 05/05/25 18:00 10 mg Q15MIN PRN Administration Hypertension Metoprolol Tartrate 25 mg 04/06/25 21:00 04/06/25 20:39 Metoprolol Tartrate 25 Mg Tablet PO 05/06/25 20:59 25 mg BID YANA Administration Nicotine 14 mg 04/06/25 09:00 04/06/25 10:08 Nicotine Patch 14 Mg/24 Hr Patch.Td24 TOP 05/06/25 08:59 14 mg QDAY YANA Administration Ondansetron HCl 4 mg 04/05/25 12:54 Ondansetron Inj 2 Mg/Ml Inj 2 Ml IVP 05/05/25 12:53 Q6H PRN NAUSEA OR VOMITING Protocol Pantoprazole Sodium 40 mg 04/06/25 09:00 04/06/25 10:07 Pantoprazole 40 Mg Tablet PO 05/06/25 08:59 40 mg QDAY YANA Administration Polyethylene Glycol 17 gm 04/06/25 09:00 04/06/25 10:17 Polyethylene Glycol 17 Gm Packet PO 05/06/25 08:59 Not Given QDAY YANA Sennosides 1 tab 04/06/25 05:09 Senna/Docusate Sod 1 Tab Tablet PO 05/06/25 05:08 QDAY PRN CONSTIPATION Protocol Sodium Chloride 3 ml 04/05/25 12:54 Sodium Chloride Rt [place] 0.9% 3 Ml Nebu INH 05/05/25 12:53 PRN PRN SOLN Plan 59-year-old female with a history of ESRD ([facility], followed by Dr. 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 Flores in [place]), insulin-dependent type 2 diabetes mellitus presented to the hospital on 04/05/2025 for acute onset of left facial droop, dysarthria, left hemiparesis. PPatient has been admitted to the monitor her neurologic symptoms. Nephrology has been consulted for management of her ESRD. #ESRD on hemodialysis. ([facility]) -On admission: BUN :53, Cr:5.1, eGFR:9, K: 3.7. -The patient received hemodialysis on thursday half way -No signs of volume overload on exam. On room air satting well. -CXR (04/05/2025): Mild bibasilar pneumonia, consider aspiration pneumonia -Currently: BUN :76, Cr:7.2, eGFR:6, K: 5.0. -Hemodialysis sessions: 04/07 Plan: -Monitor renal function -Maintain fluid restriction, avoid nephrotoxic agents when possible, renally dose medications -Strict i and o -Will receive Hemodialysis today #Encephalopathy possibly in setting of stroke #Recrudescence vs PRES #HFrEF (s/p ICD, EF 30% in 2021) #History of hypertension #[id number] smoking history, current smoker #? COPD #History of seizures #Insulin-dependent type 2 diabetes #Hyperlipidemia -Management per Primary Hospitalist team Thank you for allowing us to participate in the care of your patient. Assessment and plan discussed with my attending physician Dr. Gricelda Yates (PGY-1)- Internal medicine resident Attending Provider Attestation/Addendum patient currently seen and examined with resident physician Dr. Yates. Note reviewed, agree with findings and recommendations. Patient currently seen on dialysis. Tolerating dialysis without any problems. Hemodialysis for 3 hours, 2K, ultrafiltration 2-3 L, Epogen 6000, no heparin ordered. Plan of care discussed with the dialysis nurse. Please see dialysis flowsheet for further details. Renal prince stable for discharge postdialysis.
--- NOTE | 2025-04-07 09:02 | ESDS_ITS ---
<Statement entered by Ishmael Buckner MD - 04/07/25 12:43> Note reviewed and agree with care plan as documented. Please refer to the note below for further details. Plan discussed with attending physician Dr. Main Buckner MD PGY-2 Internal Medicine Planned Discharge Date 04/07/25 DS: Providers Provider Date of admission: 04/05/25 12:54 Primary care physician: Adrienne Bronson MD Admitting Provider: Whitney Quach MD Attending Provider on Admission: Whitney Quach MD Consults: 04/05/25 11:08 Consult to Neurology / Tele-Neurology Routine Comment: Consulting Provider: [facility] 04/05/25 13:05 Referral Physical Therapy Routine Comment: Physician Instructions: 04/05/25 13:06 Consult to Neurology / Tele-Neurology Routine Comment: Stroke R/O Consulting Provider: Vick Griffith Referral Speech Therapy Routine Comment: 04/05/25 13:09 Consult to Nephrology Routine Comment: ESRD on HD Consulting Provider: Lauren Madison Attending Provider on DC: Tiffany Saxena Discharging Provider: Tiffany Saxena DS: Diagnosis Problem List Completed Was Problem List Reviewed/Reconciled?: Yes Hospital Course Hospital Course Hospital course: Cyn Amaya is a 59-year-old female with past medical history of ESRD ([facility], followed by Dr. 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 Flores in [place]), insulin-dependent type 2 diabetes mellitus who came to the ED w/ headache and neurological deficits. CT head and CTA head/neck were unremarkable. She was admitted for stroke workup with suspected recrudescence of previous post-stroke symptoms versus PRES in the presence of fluctuating blood pressure. Regarding admit complaint of headache w/ possibility of stroke, per Neurology an MRI brain and EEG were recommended. The patient refused the EEG. MRI was delayed as patient was not aware of her ICD identity or its MRI compatibility, however it was confirmed to be compatible. MRI performed 04/07/25 and results were negative for acute stroke. Pt also received a new echo 04/05/25 which showed LVEF 30-35% though she did not have symptoms of fluid overload this admission. Regarding T2DM and ESRD, pt was not dialyzed as scheduled on day of admission and was dialyzed the day of discharge. During hospital stay patient became hypoglycemic on two occasions (20s, 40s) and hyperglycemic once (300s) despite receiving long-acting and sliding scale insulin comparable to her baseline home insulin. Currently it is thought this is due to exaggerated effect of long- acting insulin as she was not dialyzed as scheduled on day of admission. Upon discharge the patient is hemodynamically stable, sugars comparable to baseline. She is being discharged on Home Health w/ 20 units long-acting insulin along with sliding scale with instructions to follow up with her PCP regarding initiating CHF GDMT, optimizing T2DM medications. ----- Plan discussed with attending physician Dr. Main Mendoza, Medical Student BRANDIE Time Spent with Patient Time attestation: Total time spent providing and/or coordinating discharge services: Over 45 minutes Time spent: Greater than 30 minutes Exam Vital Signs Temp Pulse Resp BP Pulse Ox O2 Del Method O2 Flow Rate 96.4 F L 72 20 129/77 96 Nasal Cannula 2 04/07/25 08:10 04/07/25 08:46 04/07/25 08:10 04/07/25 08:46 04/07/25 08:10 04/07/25 07:47 04/07/25 08:10 Narrative Exam General: AOx3, appears mildly distressed/agitated, able to speak full sentences HEENT: NC/AT, mucous membranes moist, bilateral sclera anicteric, prominent b/l cataracts w/ R eyelid droop pt claims is baseline Cardiovascular: regular rate and rhythm, S1/S2 present, no murmurs appreciated Pulmonary: clear to auscultation bilaterally, no rales/rhonchi/wheezes Abdominal: soft, non-tender, non-distended, no rebound/guarding, normal bowel sounds present Musculoskeletal: normal ROM, L BKA Skin: warm and dry, intact, no rashes Neuro: CN II-XII intact, sensation intact b/l extremities,left facial decreased sensation to touch and nasolabial fold flattening. Tongue midline able to move [id number]. Impaired attention. Requires prompting to follow instructions/answer questions. Left BKA. Power in left upper extremity 3/5, power in right upper extremity 4/5, power in right lower extremity 5/5. Discharge Plan Plan Patient Disposition: Home w/HOME HEALTH Patient condition on transfer: Stable Care Plan Goals: Please follow-up with your PCP, neurology in 1 to 2 weeks of discharge. Continue to monitor your blood glucose closely, discussed with your primary regarding blood glucose control Your insulin glargine dose has been changed to 20 units daily Consider getting referral to endocrinology from your PCP Discussed regarding your blood pressure control with your PCP. Prescriptions/Referrals Prescriptions/Med Rec: New insulin lispro 200 unit/mL (3 mL) insulin pen 1 sliding scale dose subcut USEASDIRECTD Qty: 6 0RF Continued aspirin [Adult Aspirin Regimen] 81 mg tablet,delayed release (DR/EC) 81 mg PO QDAY Qty: 30 0RF bumetanide 0.5 mg tablet 1 mg PO BID Patient Comments: TAKE 2 TABLET BY MOUTH TWICE A DAY FOR 30 DAY(S) B complex-vitamin C-folic acid 0.8 mg tablet 1 tab PO QDAY lorazepam [Ativan] 2 mg tablet 2 mg PO BID guaifenesin 400 mg tablet 400 mg PO Q8HR PRN (Reason: cough) metoprolol tartrate 50 mg tablet 50 mg PO BID Patient Comments: TAKE 1 TABLET BY MOUTH TWICE A DAY WITH FOOD FOR 30 DAYS acetaminophen 500 mg tablet 1,000 mg PO Q8HR PRN (Reason: pain or arthritis) gabapentin 300 mg capsule 300 mg PO QDAY Velphoro 500 mg tablet,chewable 1,000 mg PO TID Patient Comments: Take 2 tablet by mouth three times a day with meals Changed insulin glargine [Lantus Solostar U-100 Insulin] 100 unit/mL (3 mL) insulin pen 20 unit SUBCUT QDAY 30 Days Qty: 6 0RF Patient Comments: INJECT 50 UNITS SUBCUTANEOUSLY ONCE DAILY Discontinued metoprolol tartrate 25 mg tablet 1 tab PO BID Patient Comments: TAKE 1 TABLET BY MOUTH TWICE A DAY WITH FOOD FOR 30 DAYS Referrals: Adrienne Bronson MD [Primary Care Provider] Vick Griffith MD [Physician, Neurology] Patient/Caregiver Discharge Instructions Discharge Activity: as per physical therapy Education Materials: High Blood Sugar (Hyperglycemia), Using Oxygen Safely, Using an Oxygen Tank at Home, ED Diabetes with High Blood Sugar Print Language: Urdu Stand Alone Forms: [facility]uria Award Info., Patient Portal Info Letter Discharge Order Discharge Orders: Discharge (Routine); Ordered 04/07/25 Ordered By: Whitney Quach Quality Discharge Quality Measures VTE prophylaxis Attestestation MD Attestation I attest that I was physically present for the evaluation, physical examination, lab and imaging review of the patient with the residents. I discussed the case with the residents and agree with the findings and plans of care as documented above. Patient seen and examined at bedside today. Appears comfortable and denies new complaints. States that she feels better and more energetic and wished to go home. Vital signs were stable except for hypertension covered with antihypertensives. Blood glucose level have been stable with 6 units of degludec along with premeal insulin. Brain MRI was done today, negative for acute findings. Underwent hemodialysis today, tolerated well. Discussed with neurology, agreed on patient being stable for discharge. Discussed regarding decreasing insulin dose, patient states she usually runs high at home with 40 units of lantus. She is also concerned about glucose being uncontrolled with her food. We will decrease her lantus to 20 units and recommend her to have close followup with PCP and get possible referral for Endocrinology. Patient had elevated WBC in her urine and positive leukocyte esterase, was started and treated with IV Rocephin while inpatient. Urine culture came back shows mixed nadine with possibility of contamination antibiotics discontinued on discharge., Whitney Quach MD
--- NOTE | 2025-04-07 09:42 | PC.SS ---
Addendum entered by Karen Odonnell 04/07/25 09:43: Patient needs a bsc. Patient is physically incapable of utilizing regular toilet facilities because his or her diagnosis confines the patient to a single room. Patient is confined to a single level, and there is no toilet on that level; patient cannot access the toilet facilities in a timely manner due to lack of ambulation. Original Note: Patient needs a hospital bed for home. Patients diagnosis requires positioning of the head or upper body to be elevated more than 30 degrees. Also the diagnosis requires positioning in order to alleviate pain and if the patient requires frequent changes in the body positioning and/or has an immediate need for change in the body position. Pillows and wedges have been considered and ruled out.
--- NOTE | 2025-04-07 09:52 | PC.SS ---
Addendum entered by Karen Odonnell 04/07/25 15:34: SS contacted [employer] to follow up on DME delivery. [facility] states they spoke to patient who states she did not need the DME. SS clarified that she does. They need to contact daughter or myself. Patient still has DME at home: 02/hospital bed/3:1 commode that was provided by hospice. She is set for discharge. Confirmed with daughter, Javier, she can transport patient home if late discharge. Addendum entered by Karen Odonnell 04/07/25 10:09: Patient's insurance is contracted with [employer]. SS submitted request to [employer] for delivery today Original Note: Follow up note: SS sent DME order through [employer]. Araceli d/c today with services. Patient will need 02/hospital bed/bsc per PT. Patient has all DME at home but were set up by [facility]. [facility] has agreed to keep DME at the home until patient's new DME arrives.
[2025-04-07] MEDS: HEPARIN SOD INJ 1000 UNIT/ML VIAL 10 ML 3300 UNIT INDWELLCAT (11:33)
[2025-04-07] MEDS: METOPROLOL TARTRATE 25 MG TABLET PO (12:41)
[2025-04-07] MEDS: PANTOPRAZOLE 40 MG TABLET PO (12:42)
[2025-04-07] MEDS: ASPIRIN EC 81 MG TABEC PO (12:42)
[2025-04-07] MEDS: AZITHROMYCIN INJ 500 MG in SODIUM CHLORIDE 0.9% 250 ML 250 ML 250 MG IV (12:42)
[2025-04-07] MEDS: HEPARIN SOD INJ 5000 UNIT/ML VIAL SC (12:42)
[2025-04-07] MEDS: BUMETANIDE INJ 0.25 MG/ML VIAL 4 ML 1 MG IVP (12:43)
[2025-04-07] MEDS: cefTRIAXone/D5w 1gm IV premix 1 GM/50 ML BAG IV (12:43)
[2025-04-07] MEDS: NICOTINE PATCH 14 MG/24 HR PATCH.TD24 TOP (12:44)
[2025-04-07] MEDS: INSULIN LISPRO (AdmeLOG) 1 UNIT/0.01 ML UNIT SC ×2 (12:48→17:37)
[2025-04-07] MEDS: INSULIN LISPRO (AdmeLOG) 1 UNIT/0.01 ML UNIT 3 UNIT SC (13:10)
[2025-04-07] MEDS: ONDANSETRON INJ 2 MG/ML INJ 2 ML 4 MG IVP (16:57)
--- NOTE | 2025-04-07 19:30 | PC.NURSE ---
Patient refused last set of vitals before discharge.
--- NOTE | 2025-04-07 19:41 | PC.NURSE ---
Patient originally had orders to go home with home oxygen. Patient is unable to bring oxygen tank to hospital for discharge home. Contacted Dr. Quach and made aware. came by and talked with patient. checked patient's oxygen saturation. Per Dr. Quach, patient was sating at 95% on room air and patient is safe to go home without oxygen.
--- NOTE | 2025-04-07 23:32 | PD.NEUROPROG ---
Documentation for date of: 04/07/25 Subjective Subjective Interval history: Patient is in telemetry today. And denies any new symptoms. Anxious to be discharged home. Exam - Neurology Vital Signs Temp Pulse Resp BP Pulse Ox O2 Del Method O2 Flow Rate 97.9 F 99 22 H 179/96 H 84 L Nasal Cannula 6 04/07/25 17:55 04/07/25 18:37 04/07/25 18:37 04/07/25 18:09 04/07/25 18:37 04/07/25 17:55 04/07/25 17:55 Narrative Exam GENERAL APPEARANCE: Well-developed, obese built female in no acute distress. HEENT: Normocephalic, atraumatic, extraocular movements intact. Pupils: Equal reacting to light and accommodation. NECK: Supple, no JVD or bruits. CARDIOVASULAR: Heart: S1, S2 heard, regular without S3-S4 or murmur no rubs or gallops. LUNGS/CHEST: Clear to auscultation bilaterally. No rails, rhonchi, or wheezing. Normal inspection. ABDOMEN: Soft, nontender, with normal bowel sounds. No pulsatile masses. No rebound, rigidity, or guarding. Normal inspection and palpation. EXTREMITIES: Normal inspection and palpation. No edema, clubbing or cyanosis. SKIN: Warm and dry without rashes. Normal inspection. MUSCULOSKELETAL: No cervical, thoracic, lumbar or midline bony tenderness. Normal inspection. NEURO: Alert, awake and oriented x3. Cranial nerves: II through XII grossly intact. Speech and language: Normal with no dysarthria or dysphasia. Motor system: Tone and bulk: Normal: Strength: 5 out of 5 in all 4 extremities; No pronator drift noted. Deep tendon reflexes: 1+ bilaterally symmetrical. Sensory system: Intact to all modalities of sensation bilaterally. Gait: Not tested. No signs of meningeal irritation noted. PSYCHIATRIC: Normal mood and affect. Objective Labs 04/07/25 05:20 04/07/25 05:20 Labs: Laboratory Results - last 24 hr 04/07/25 05:20 WBC 5.3 D RBC 3.76 L Hgb 12.0 D Hct 35.8 L MCV 95 MCH 31.9 MCHC 33.5 RDW Std Deviation 44.8 Plt Count 109 L D Neut % (Auto) 64 Lymph % (Auto) 19 [place] % (Auto) 11 Eos % (Auto) 5 Baso % (Auto) 1 Neut # (Auto) 3.4 Lymph # (Auto) 1.0 [place] # (Auto) 0.6 Eos # (Auto) 0.3 Baso # (Auto) 0.0 Immature Gran # (Auto) 0.03 H Absolute Nucleated RBC 0.00 Immature Gran % 1 H Nucleated RBC % 0 Sodium 136 Potassium 5.0 D Chloride 99 Carbon Dioxide 24.8 Anion Gap 12 BUN 76 H Creatinine 7.2 H* D Estim Creat Clear Calc 8.4 L eGFR 6 L* BUN/Creatinine Ratio 11 L Glucose 242 H D Calculated Osmolality 302 H Calcium 8.8 Corrected Calcium 9.4 Total Bilirubin 0.2 L AST 23 ALT 14 Alkaline Phosphatase 75 Total Protein 5.1 L Albumin 3.3 L D Globulin 1.8 L Albumin/Globulin Ratio 1.8 ABG Interpretation ABG results: 04/05/25 04/06/25 10:26 10:06 VBG pH 7.32 L 7.29 L VBG pCO2 46 50 VBG pO2 80 H 57 D VBG Base Excess -3 -3 Assessment & Plan Assessment and plan (1) Altered level of consciousness: Status: Resolved Assessment and plan: Most likely secondary to metabolic/uncontrolled hypertension and diabetes. Reassurance given to the patient regarding the MRI brain findings. As the patient mental status is back to baseline, and anxious to be discharged home and to have dialysis today, patient is stable from neurology standpoint for discharge home and I will see her back in 2 weeks (2) Severe diabetic hypoglycemia: Status: Acute (3) Severe uncontrolled hypertension: Status: Acute (4) Elevated troponin: Status: Acute (5) Myocardial infarction type 2: Status: Acute (6) History of stroke: Status: Acute (7) Chronic systolic (congestive) heart failure: Status: Acute Additional Assessment & Plan Additional Plan: Continue with the current management. Reassurance given to the patient that the EEG showed normal study. Patient had a seizure secondary to severe hypoglycemia. Seems depressed, added Zoloft 25 mg, patient refused SNF and wants to be discharged home.
--- NOTE | 2025-04-10 09:18 | PC.CC ---
HH ref sent out, waiting for response
--- NOTE | 2025-04-18 11:21 | PC.SS ---
Follow up note: SS received a message that patient still has not received her DME. Patient currently has DME provided by hospice that they need to pickle pumper. SS contacted [employer] to verify what the delay is. They stated they did not have a delivery address and they could not get a hold of family. No one was responding to their messages or their voice mail was full. SS contacted patient's daughter, Javier, who confirmed d/c address on [address]. SS provided contact number for [employer] @ [phone] and they need to contact them to coordinate delivery. Family understood. SS explained the importance of calling as hospice will need to take back their DME. Once this is done, patient will be without equipment.
== END 2025-04-07 20:40 | disposition home health service (06) | DRG 56 ==
LOC: SERX 12:40 → SERHOLD 14:02 → S2NX 16:09
PROVIDERS: Internal Medicine; Admitting Provider Student in an Organized Health Care Education/Training Program; Emergency Provider Emergency Medicine; PCP Family Medicine; Visit Provider Student in an Organized Health Care Education/Training Program
DX: I69.392 Facial weakness following cerebral infarction (principal); J18.9 Pneumonia, unspecified organism; N18.6 End stage renal disease; I13.2 Hypertensive heart and chronic kidney disease with heart failure and with stage 5 chronic kidney disease, or end stage renal disease; I67.4 Hypertensive encephalopathy; I50.22 Chronic systolic (congestive) heart failure; I69.354 Hemiplegia and hemiparesis following cerebral infarction affecting left non-dominant side; G62.9 Polyneuropathy, unspecified; F41.9 Anxiety disorder, unspecified; E11.22 Type 2 diabetes mellitus with diabetic chronic kidney disease; F15.90 Other stimulant use, unspecified, uncomplicated; R29.706 NIHSS score 6; Z79.4 Long term (current) use of insulin; E78.5 Hyperlipidemia, unspecified; E11.65 Type 2 diabetes mellitus with hyperglycemia; E11.649 Type 2 diabetes mellitus with hypoglycemia without coma; R56.9 Unspecified convulsions; I95.9 Hypotension, unspecified; Z79.84 Long term (current) use of oral hypoglycemic drugs; I69.322 Dysarthria following cerebral infarction; Z87.891 Personal history of nicotine dependence; Z89.512 Acquired absence of left leg below knee; Z95.810 Presence of automatic (implantable) cardiac defibrillator; Z99.2 Dependence on renal dialysis; Z53.29 Procedure and treatment not carried out because of patient's decision for other reasons; Z79.899 Other long term (current) drug therapy
CPT/HCPCS: 36415; 70450; 70496; 70498; 70544; 71045; 74177; 80053; 80061; 80069; 80074; 80307; 80320; 81001; 82010; 82306; 82803; 83036; 83605; 83735; 83880; 83970; 84100; 84443; 84484; 84550; 85025; 85610; 85730; 87086; 87502; 87811; 92610; 93005; 93306; 94664; 96365; 96366; 96372; 96375; 97162; 99285; A4649; J0456; J0696; J1611; J1643; J1644; J1815; J2405; J3490; J7050; Q9967; A9270; G0480; J1920